=== PATIENT | female | born 1995 | race Caucasian/White ===

== ENCOUNTER 2017-01-06 20:23 | Emergency (ER) | payer OTHER ==
[2017-01-06 20:32] VITALS: BP 135/88; PULSE 84; RESP 18; TEMP 98.8
[2017-01-06] MEDS ORDERED: IBUPROFEN 600 MG STARTER PACK 4 TAB BTL PO STA (20:47)
[2017-01-06] MEDS ORDERED: MORPHINE SULFATE 4 MG/ML SYRINGE IM STA (20:47)
[2017-01-06] MEDS ORDERED: CYCLOBENZAPRINE 10MG STARTER 3 TAB BTL PO STA (20:47)
--- NOTE | 2017-01-06 20:52 | ED ---
General Adult HPI - General Chief complaint: Neck Pain/Injury Stated complaint: Neck Pain Time Seen by Provider: 01/06/17 20:36 Source: patient, RN notes reviewed Mode of arrival: ambulatory Limitations: no limitations - History of Present Illness Initial comments: Patient is a 21-year-old female who presents emergency room today with chief complaint of increased right-sided neck pain over the last 2 days. She states she woke up with pain to the right side. She states worse when she rotates her head to the right. States not as bad when she rotates to the left. She states she's been trying Tylenol flu relief the symptoms. Patient denies any other complaints or symptoms. Patient denies any recent fever, chills, shortness of breath, chest pain, back pain, abdominal pain, nausea or vomiting, numbness or tingling, dysuria or hematuria, constipation or diarrhea, headaches or visual changes, or any other complaints. - Related Data Home Medications Medication Instructions Recorded Confirmed [id number] 2 tab PO DAILY PRN 01/06/17 01/06/17 [Excedrin] Cetirizine HCl [Zyrtec] 10 mg PO DAILY PRN 01/06/17 01/06/17 diphenhydrAMINE HCL [Benadryl] 25 mg PO QAM 01/06/17 01/06/17 diphenhydrAMINE HCL [Benadryl] 50 mg PO HS 01/06/17 01/06/17 Previous Rx's Medication Instructions Recorded Cyclobenzaprine [Flexeril] 10 mg PO TID #20 tab 01/06/17 Ibuprofen [Motrin] 800 mg PO Q6HR #30 tab 01/06/17 Allergies Allergy/AdvReac Type Severity Reaction Status Date / Time No Known Allergies Allergy Verified 01/06/17 20:41 Review of Systems ROS Statement: Those systems with pertinent positive or pertinent negative responses have been documented in the HPI. ROS Other: All systems not noted in ROS Statement are negative. Past Medical History Past Medical History: No Reported History History of Any Multi-Drug Resistant Organisms: Unobtainable Past Surgical History: No Surgical Hx Reported Past Psychological History: No Psychological Hx Reported Smoking Status: Never smoker Past Alcohol Use History: None Reported Past Drug Use History: None Reported General Exam - General Exam Comments Initial Comments: General: The patient is awake and alert, in no distress, and does not appear acutely ill. Eye: Pupils are equal, round and reactive to light, extra-ocular movements are intact. No nystagmus. There is normal conjunctiva bilaterally. No signs of icterus. Ears, nose, mouth and throat: There are moist mucous membranes and no oral lesions. Neck: The neck is supple, there is no tenderness or JVD. Cardiovascular: There is a regular rate and rhythm. No murmur, rub or gallop is appreciated. Respiratory: Lungs are clear to auscultation, respirations are non-labored, breath sounds are equal. No wheezes, stridor, rales, or rhonchi. Musculoskeletal: Normal ROM. Patient does have tenderness over the sternocleidomastoid on the right. Patient pain reproduced when she rotates to the right. Strength 5/5. Sensation intact. Pulses equal bilaterally 2+. Neurological: A&O x 3. CN II-XII intact, There are no obvious motor or sensory deficits. Coordination appears grossly intact. Speech is normal. Skin: Skin is warm and dry and no rashes or lesions are noted. Psychiatric: Cooperative, appropriate mood & affect, normal judgment. Limitations: no limitations Course Vital Signs 01/06/17 20:30 Temperature 98.8 F Pulse Rate 84 Respiratory 18 Rate Blood Pressure 135/88 O2 Sat by Pulse 99 Oximetry Medical Decision Making - Medical Decision Making Patient given dose of morphine here in the emergency room if she does have a ride home advise anti-inflammatories and muscle laxer.. Muscle laxer mimicker drowsy. Disposition Clinical Impression: Torticollis Disposition: HOME SELF-CARE Condition: Good Instructions: Spasmodic Torticollis (ED) Additional Instructions: Please use medications as prescribed. Aware that they may make you drowsy. Please follow-up the family doctor over the next 2 days return to emergency room for any other concerns. Prescriptions: Cyclobenzaprine [Flexeril] 10 mg PO TID #20 tab Ibuprofen [Motrin] 800 mg PO Q6HR #30 tab Referrals: None,Stated [Primary Care Provider] - 1-2 days Sanket Lynn MD [REFERRING] - 1-2 days Shayne Gibson DO [STAFF PHYSICIAN] - 1-2 days Time of Disposition: 20:50
== END 2017-01-06 21:10 | disposition home or self-care (01) ==
LOC: EC 20:23
DX: M43.6 Torticollis (principal); Z79.899 Other long term (current) drug therapy
CPT/HCPCS: 99283; 96372; J2270

== ENCOUNTER 2017-04-24 23:06 | Emergency (ER) | payer OTHER ==
--- NOTE | 2017-04-24 23:40 | ED ---
General Adult HPI - General Chief complaint: Abdominal Pain Stated complaint: Flank Pain/Sinus Pain Time Seen by Provider: 04/24/17 23:28 Source: patient, RN notes reviewed Mode of arrival: ambulatory Limitations: no limitations - History of Present Illness Initial comments: The patient 21-year-old female who presents emergency room today with multiple complaints. Patient does admit that she believe she may have a kidney infection. She states she had some pain in the left flank area [address]. States came back tonight. Patient does admit that she also expressed pain on the right side as well. She denies any injury or trauma. Patient states feels similar to kidney infection that she's had in the past. She denies any dysuria. Denies any increased frequency. Patient also admits to a sinus infection and started yesterday. Does admit to increased drainage. Patient states feels congested. Doesn't pressure behind his sinuses. Denies any other complaints. Patient denies any recent fever, chills, shortness of breath, chest pain, abdominal pain, nausea or vomiting, numbness or tingling, dysuria or hematuria, constipation or diarrhea, headaches or visual changes, or any other complaints. - Related Data Home Medications Medication Instructions Recorded Confirmed Cetirizine HCl [Zyrtec] 10 mg PO DAILY PRN 01/06/17 04/24/17 diphenhydrAMINE HCL [Children's 1 dose PO ONCE PRN 04/24/17 04/24/17 Benadryl Allergy] Previous Rx's Medication Instructions Recorded Cyclobenzaprine [Flexeril] 10 mg PO TID #20 tab 04/25/17 Fluticasone Propionate [Flonase 1 - 2 spray EA NOSTRIL DAILY 5 04/25/17 Allergy Relief] Days ml Ibuprofen [Motrin] 600 mg PO Q6HR PRN #40 day 04/25/17 Allergies Allergy/AdvReac Type Severity Reaction Status Date / Time amoxicillin AdvReac Nausea & Verified 04/24/17 23:20 Vomiting Review of Systems ROS Statement: Those systems with pertinent positive or pertinent negative responses have been documented in the HPI. ROS Other: All systems not noted in ROS Statement are negative. Past Medical History Past Medical History: No Reported History History of Any Multi-Drug Resistant Organisms: Unobtainable Past Surgical History: No Surgical Hx Reported Past Psychological History: No Psychological Hx Reported Smoking Status: Never smoker Past Alcohol Use History: Occasional Past Drug Use History: Marijuana General Exam - General Exam Comments Initial Comments: General: The patient is awake and alert, in no distress, and does not appear acutely ill. Eye: Pupils are equal, round and reactive to light, extra-ocular movements are intact. No nystagmus. There is normal conjunctiva bilaterally. No signs of icterus. Ears, nose, mouth and throat: There are moist mucous membranes and no oral lesions. Tender over the frontal sinuses. Neck: The neck is supple, there is no tenderness or JVD. Cardiovascular: There is a regular rate and rhythm. No murmur, rub or gallop is appreciated. Respiratory: Lungs are clear to auscultation, respirations are non-labored, breath sounds are equal. No wheezes, stridor, rales, or rhonchi. Gastrointestinal: Soft, non-distended, non-tender abdomen without masses or organomegaly noted. There is no rebound or guarding present. No CVA tenderness. Bowel sounds are unremarkable. Musculoskeletal: Normal ROM, no tenderness. Strength 5/5. Sensation intact. Pulses equal bilaterally 2+. Neurological: A&O x 3. CN II-XII intact, There are no obvious motor or sensory deficits. Coordination appears grossly intact. Speech is normal. Skin: Skin is warm and dry and no rashes or lesions are noted. Psychiatric: Cooperative, appropriate mood & affect, normal judgment. Limitations: no limitations Course Vital Signs 04/24/17 23:08 Temperature 99.1 F Pulse Rate 113 H Respiratory 17 Rate Blood Pressure 113/91 O2 Sat by Pulse 98 Oximetry Medical Decision Making - Medical Decision Making Patient reexamined at this time shows no signs of stress currently sleeping in the stretcher. Patient does not the back pain is worse with certain movements. Also felt that it could be musculoskeletal. Patient urinalysis is been reviewed will be added. Patient will also be treated with Flonase for sinus infection. Advised continue [id number] medications. Advised anti- inflammatories will also be given a muscle relaxer for her back. Advised close follow-up return here to the emergency room symptoms increase or worsen. - Lab Data Lab Results 04/24/17 04/24/17 Range/Units 23:37 23:37 Urine Color Yellow Urine Appearance Clear (Clear) Urine pH 5.5 (5.0-8.0) Ur Specific [place] 1.028 (1.001-1.035) Urine Protein Trace H (Negative) Urine Glucose (UA) Negative (Negative) Urine Ketones Trace H (Negative) Urine Blood Negative (Negative) Urine Nitrite Negative (Negative) Urine Bilirubin Negative (Negative) Urine Urobilinogen <2.0 (<2.0) mg/dL Ur Leukocyte Esterase Trace H (Negative) Urine RBC 1 (0-5) /hpf Urine WBC 4 (0-5) /hpf Ur Squamous Epith Cells 1 (0-4) /hpf Urine Bacteria Rare H (None) /hpf Urine Mucus Rare H (None) /hpf Urine HCG, Qual Not Detected (Not Detectd) Disposition Clinical Impression: Acute low back pain, Sinusitis, acute Disposition: HOME SELF-CARE Condition: Good Instructions: Sinusitis (ED), Acute Low Back Pain (ED) Additional Instructions: Please use medication as discussed. Please be aware the muscle relaxant may make you drowsy. Please follow-up with family doctor in the next 2 days of symptoms have not improved. Please return to emergency room if the symptoms increase or worsen or for any other concerns. Prescriptions: Cyclobenzaprine [Flexeril] 10 mg PO TID #20 tab Fluticasone Propionate [Flonase Allergy Relief] 1 - 2 spray EA NOSTRIL DAILY 5 Days ml Ibuprofen [Motrin] 600 mg PO Q6HR PRN #40 day PRN Reason: Pain Referrals: None,Stated [Primary Care Provider] - 1-2 days Davian Lofton MD [STAFF PHYSICIAN] - 1-2 days Time of Disposition: 00:03
[2017-04-24 23:53] LABS: Appearance,Urine Clear (Clear); Bacteria,Urine Rare /hpf; Bilirubin,Urine Negative (Negative); Blood,Urine Negative (Negative); Color,Urine Yellow; Glucose,Urine (UA) Negative (Negative); Ketones,Urine Trace (Negative); Leukocyte Esterase,Urine Trace (Negative); Mucus,Urine Rare /hpf; Nitrite,Urine Negative (Negative); PH, Urine 5.5 (5.0-8.0); Protein,Urine Trace (Negative); RBC,Urine 1 /hpf (0-5); Specific Gravity,Urine 1.028 (1.001-1.035); Squamous Epithelial Cell,Urine 1 /hpf (0-4); Urobilinogen,Urine <2.0 mg/dL (<2.0); WBC,Urine 4 /hpf (0-5)
[2017-04-25] MEDS ORDERED: ACETAMINOPHEN TAB 500 MG TAB PO STA (00:20)
[2017-04-25 00:22] VITALS: BP 130/61; PULSE 97; RESP 18; TEMP 101.4
== END 2017-04-25 00:27 | disposition home or self-care (01) ==
LOC: EC 23:06
DX: J01.90 Acute sinusitis, unspecified (principal); M54.5 Low back pain; Z88.0 Allergy status to penicillin
CPT/HCPCS: 81001; 81025; 87077; 87086; 87186; 99284

== ENCOUNTER 2017-09-19 19:33 | Emergency (ER) | payer OTHER ==
[2017-09-19] MEDS ORDERED: ACETAMINOPHEN TAB 325 MG TAB PO STA (19:59)
[2017-09-19] MEDS ORDERED: SODIUM CHLORIDE 0.9% 1,000 ML IV ONE (19:59)
--- NOTE | 2017-09-19 20:21 | ED ---
Abdominal Pain HPI - General Chief Complaint: Abdominal Pain Stated Complaint: Back Pain Time Seen by Provider: 09/19/17 19:45 Source: patient Mode of arrival: ambulatory Limitations: no limitations - History of Present Illness Initial Comments: 22-year-old female patient presented to the emergency department today for evaluation of lower abdominal cramping and lower back pain. Patient states his been going on since yesterday. Patient reports that she is 10 weeks . She is a . Patient denies any abnormal vaginal bleeding or discharge. Denies any hematuria, dysuria, urinary frequency, urinary urgency. Patient states that today she also had a hot flash felt very warm. She denies any sweats. Denies any rash. States that she did have an ultrasound at 6 weeks confirming intrauterine . She has not had her first OB appointment yet. Patient denies any recent fever, chills, shortness breath, chest pain, nausea, vomiting, diarrhea, constipation, numbness, tingling, dizziness, weakness, headache, visual changes, or any other complaints. - Related Data Home Medications Medication Instructions Recorded Confirmed Cetirizine HCl [Zyrtec] 10 mg PO DAILY PRN 01/06/17 09/19/17 Pnv No.95/Ferrous Fum/Folic AC 1 tab PO DAILY 09/19/17 09/19/17 [ Multivitamin Tablet] diphenhydrAMINE HCL [Benadryl] 25 mg PO HS 09/19/17 09/19/17 Allergies Allergy/AdvReac Type Severity Reaction Status Date / Time amoxicillin AdvReac Nausea & Verified 09/19/17 20:11 Vomiting Review of Systems ROS Statement: Those systems with pertinent positive or pertinent negative responses have been documented in the HPI. ROS Other: All systems not noted in ROS Statement are negative. Past Medical History Past Medical History: No Reported History History of Any Multi-Drug Resistant Organisms: None Reported Past Surgical History: No Surgical Hx Reported Past Psychological History: Anxiety Smoking Status: Never smoker Past Alcohol Use History: Occasional Past Drug Use History: None Reported General Exam Limitations: no limitations General appearance: alert, in no apparent distress, other (Physical well- developed, well-nourished adult female patient in no acute distress. Vital signs upon presentation are temperature 98.1F, pulse 80, respirations 18, blood pressure 107/70, pulse ox 98% on room air.) Eye exam: Present: normal appearance, PERRL, EOMI. Absent: scleral icterus, conjunctival injection, periorbital swelling ENT exam: Present: normal exam, normal oropharynx, mucous membranes moist Respiratory exam: Present: normal lung sounds bilaterally. Absent: respiratory distress, wheezes, rales, rhonchi, stridor Cardiovascular Exam: Present: regular rate, normal rhythm, normal heart sounds. Absent: systolic murmur, diastolic murmur, rubs, gallop, clicks GI/Abdominal exam: Present: soft, normal bowel sounds. Absent: distended, tenderness, guarding, rebound, rigid Back exam: Present: normal inspection. Absent: CVA tenderness (R), CVA tenderness (L) Neurological exam: Present: alert, oriented X3, CN II-XII intact Psychiatric exam: Present: normal affect, normal mood Skin exam: Present: warm, dry, intact, normal color. Absent: rash Course Vital Signs 09/19/17 09/19/17 09/19/17 19:36 21:18 22:54 Temperature 98.1 F 97.5 F L Pulse Rate 80 56 L 75 Respiratory 18 17 18 Rate Blood Pressure 107/70 113/65 115/84 O2 Sat by Pulse 98 100 100 Oximetry Medical Decision Making - Medical Decision Making 22-year-old female patient who is approximately 9 weeks presented to the emergency department today with complaints of lower abdominal cramping and low back pain. Patient denied any vaginal bleeding or discharge. Physical examination is unremarkable. Abdomen is soft and nontender. Urinalysis was negative for any evidence of infection. Labs are unremarkable. HCG level is within range for the stage of her . Ultrasound was performed and showed normal viable intrauterine measuring 9 weeks 1 day. Heart rate was within normal range. Did discuss findings and results with the patient. She is instructed follow-up with CHIEF WHEELAGE CLERK as soon as possible. Return parameters discussed in detail. She verbalizes understanding and agrees with this plan. - Lab Data Result diagrams: 09/19/17 19:10 09/19/17 19:10 Lab Results 09/19/17 09/19/17 09/19/17 Range/Units 19:10 19:10 19:10 WBC 8.5 (3.8-10.6) k/uL RBC 4.55 (3.80-5.40) m/uL Hgb 12.5 (11.4-16.0) gm/dL Hct 36.7 (34.0-46.0) % MCV 80.5 (80.0-100.0) fL MCH 27.4 (25.0-35.0) pg MCHC 34.1 (31.0-37.0) g/dL RDW 14.4 (11.5-15.5) % Plt Count 250 (150-450) k/uL Neutrophils % 64 % Lymphocytes % 24 % Monocytes % 7 % Eosinophils % 3 % Basophils % 0 % Neutrophils # 5.5 (1.3-7.7) k/uL Lymphocytes # 2.1 (1.0-4.8) k/uL Monocytes # 0.6 (0-1.0) k/uL Eosinophils # 0.2 (0-0.7) k/uL Basophils # 0.0 (0-0.2) k/uL Sodium 138 (137-145) mmol/L Potassium 3.8 (3.5-5.1) mmol/L Chloride 106 (98-107) mmol/L Carbon Dioxide 22 (22-30) mmol/L Anion Gap 10 mmol/L BUN 12 (7-17) mg/dL Creatinine 0.52 (0.52-1.04) mg/dL Est GFR (CKD-EPI)AfAm >90 (>60 ml/min/1.73 sqM) Est GFR (CKD-EPI)NonAf >90 (>60 ml/min/1.73 sqM) Glucose 89 (74-99) mg/dL Calcium 8.7 (8.4-10.2) mg/dL Total Bilirubin 0.2 (0.2-1.3) mg/dL AST 20 (14-36) U/L ALT 40 (9-52) U/L Alkaline Phosphatase 47 (38-126) U/L Total Protein 5.8 L (6.3-8.2) g/dL Albumin 3.3 L (3.5-5.0) g/dL Amylase 41 (30-110) U/L Lipase 50 (23-300) U/L HCG, Quant 75977.6 mIU/mL Urine Color Yellow Urine Appearance Clear (Clear) Urine pH 6.5 (5.0-8.0) Ur Specific [place] 1.026 (1.001-1.035) Urine Protein Negative (Negative) Urine Glucose (UA) 1+ H (Negative) Urine Ketones Negative (Negative) Urine Blood Negative (Negative) Urine Nitrite Negative (Negative) Urine Bilirubin Negative (Negative) Urine Urobilinogen 2.0 (<2.0) mg/dL Ur Leukocyte Esterase Negative (Negative) - Radiology Data Radiology results: report reviewed ultrasound was obtained. Report was reviewed in its entirety. Impression by Dr. Rothman shows ultrasound gestational age is 9 weeks in 1 day. No, getting process is seen. Viable intrauterine . Heart rate 165 bpm. Disposition Clinical Impression: Abdominal pain during Disposition: HOME SELF-CARE Condition: Good Instructions: Abdominal Pain in (ED) Additional Instructions: Increase fluids. Follow-up with your CHIEF WHEELAGE CLERK as soon as possible. Return here immediately for any new, worsening, or concerning symptoms. Is patient prescribed a controlled substance at d/c from ED?: No Referrals: Ania Babcock MD [Primary Care Provider] - 1-2 days Time of Disposition: 22:42
[2017-09-19 20:25] LABS: Basophils % (A) 0 %; Eosinophils # (A) 0.2 k/uL (0-0.7); Eosinophils % (A) 3 %; HCT 36.7 % (34.0-46.0); HGB 12.5 gm/dL (11.4-16.0); Lymphocytes # (A) 2.1 k/uL (1.0-4.8); Lymphocytes % (A) 24 %; MCH 27.4 pg (25.0-35.0); MCHC 34.1 g/dL (31.0-37.0); MCV 80.5 fL (80.0-100.0); Mean Platelet Volume 7.7; Monocytes # (A) 0.6 k/uL (0-1.0); Monocytes % (A) 7 %; Neutrophils # (A) 5.5 k/uL (1.3-7.7); Neutrophils % (A) 64 %; Platelet Count 250 k/uL (150-450); RBC 4.55 m/uL (3.80-5.40); RDW 14.4 % (11.5-15.5); WBC 8.5 k/uL (3.8-10.6)
[2017-09-19 20:28] LABS: Appearance,Urine Clear (Clear); Bilirubin,Urine Negative (Negative); Blood,Urine Negative (Negative); Color,Urine Yellow; Glucose,Urine (UA) 1+ (Negative); Ketones,Urine Negative (Negative); Leukocyte Esterase,Urine Negative (Negative); Nitrite,Urine Negative (Negative); PH, Urine 6.5 (5.0-8.0); Protein,Urine Negative (Negative); Specific Gravity,Urine 1.026 (1.001-1.035)
[2017-09-19 20:43] LABS: ALT 40 U/L (9-52); AST 20 U/L (14-36); Albumin 3.3 g/dL (3.5-5.0); Alkaline Phosphatase 47 U/L (38-126); Amylase 41 U/L (30-110); Anion Gap 10 mmol/L; Blood Urea Nitrogen 12 mg/dL (7-17); Calcium 8.7 mg/dL (8.4-10.2); Carbon Dioxide 22 mmol/L (22-30); Chloride 106 mmol/L (98-107); Glucose 89 mg/dL (74-99); Lipase 50 U/L (23-300); Potassium 3.8 mmol/L (3.5-5.1); Sodium 138 mmol/L (137-145); Total Bilirubin 0.2 mg/dL (0.2-1.3); Total Protein 5.8 g/dL (6.3-8.2)
--- NOTE | 2017-09-19 21:09 | US ---
EXAMINATION TYPE: Transabdominal DATE OF EXAM: 07/16/17 COMPARISON: NONE CLINICAL HISTORY: Pain. Back pain EXAM PERFORMED: Transabdominal (TA) EXAM MEASUREMENTS: GESTATIONAL AGE / DATING Physician Established: (9 weeks/3 days) EDC: 04/21/2018 Dates by LMP: (9 weeks/3 days) EDC: 04/21/2018 Dates by First Scan: No previous this is first scan Dates by Current Scan for: (9 weeks/1 days) EDC: 04/23/2018 MATERNAL ANATOMY Uterus: 10.1 x 6.5 x 8.1 cm Right Ovary: 4.0 x 2.2 x 1.7 cm Left Ovary: 3.7 x 3.1 x 2.5 cm Post CDS / Adnexa: wnl Presence of free fluid: no Presence of corpus luteal cyst: no Presence of subchorionic bleed: no GESTATION / SURVEY CRL: 2.5 cm (9 weeks/1 days) Yolk Sac (normal less than 6mm): 4 mm Heart Rate: 165 bpm Rhythm: Normal IUP: Viable IUP Beta HcG (if available): Not available at this time Viable IUP 9w1d STEFANY 04/23/2018 HR 165 BPM IMPRESSION: The ultrasound gestational age is 9 weeks and 1 day. No complicating process seen.
[2017-09-19 22:00] LABS: HCG,Quantitative Serum 71203.6 mIU/mL
[2017-09-19 22:57] VITALS: BP 115/84; PULSE 75; RESP 18; TEMP 97.5
== END 2017-09-19 22:53 | disposition home or self-care (01) ==
LOC: EC 19:33
DX: O99.89 Other specified diseases and conditions complicating pregnancy, childbirth and the puerperium (principal); R10.30 Lower abdominal pain, unspecified; M54.5 Low back pain; R20.8 Other disturbances of skin sensation; Z79.899 Other long term (current) drug therapy; Z88.0 Allergy status to penicillin; Z3A.09 9 weeks gestation of pregnancy
CPT/HCPCS: 36415; 76801; 80053; 81003; 82150; 83690; 84702; 85025; 96360; 96361; 99284

== ENCOUNTER 2017-09-25 05:39 | Emergency (ER) | payer OTHER ==
[2017-09-25 05:47] VITALS: TEMP 97.4
[2017-09-25 06:40] LABS: Appearance,Urine Cloudy (Clear); Bacteria,Urine Rare /hpf; Bilirubin,Urine Negative (Negative); Blood,Urine Negative (Negative); Color,Urine Yellow; Glucose,Urine (UA) Negative (Negative); Hyaline Casts,Urine 1 /lpf (0-2); Ketones,Urine Negative (Negative); Leukocyte Esterase,Urine Negative (Negative); Mucus,Urine Rare /hpf; Nitrite,Urine Negative (Negative); Protein,Urine Negative (Negative); RBC,Urine <1 /hpf (0-5); Specific Gravity,Urine 1.022 (1.001-1.035); Squamous Epithelial Cell,Urine 10 /hpf (0-4); Urobilinogen,Urine <2.0 mg/dL (<2.0); WBC,Urine 4 /hpf (0-5)
[2017-09-25 07:00] LABS: ALT 38 U/L (9-52); AST 18 U/L (14-36); Albumin 3.3 g/dL (3.5-5.0); Alkaline Phosphatase 57 U/L (38-126); Anion Gap 10 mmol/L; Blood Urea Nitrogen 14 mg/dL (7-17); Calcium 8.7 mg/dL (8.4-10.2); Carbon Dioxide 24 mmol/L (22-30); Chloride 106 mmol/L (98-107); Glucose 92 mg/dL (74-99); Potassium 4.5 mmol/L (3.5-5.1); Sodium 140 mmol/L (137-145); Total Bilirubin 0.2 mg/dL (0.2-1.3); Total Protein 5.8 g/dL (6.3-8.2)
[2017-09-25 07:10] LABS: Basophils % (A) 0 %; Eosinophils # (A) 0.2 k/uL (0-0.7); Eosinophils % (A) 3 %; HCT 37.1 % (34.0-46.0); HGB 12.4 gm/dL (11.4-16.0); Lymphocytes % (A) 31 %; MCH 27.2 pg (25.0-35.0); MCHC 33.5 g/dL (31.0-37.0); MCV 81.2 fL (80.0-100.0); Mean Platelet Volume 7.2; Monocytes # (A) 0.3 k/uL (0-1.0); Monocytes % (A) 5 %; Neutrophils # (A) 3.8 k/uL (1.3-7.7); Neutrophils % (A) 59 %; Platelet Count 235 k/uL (150-450); RBC 4.57 m/uL (3.80-5.40); RDW 14.2 % (11.5-15.5); WBC 6.4 k/uL (3.8-10.6)
--- NOTE | 2017-09-25 07:13 | ED ---
Abdominal Pain HPI - General Chief Complaint: Abdominal Pain Stated Complaint: abd pain 10wks preg Time Seen by Provider: 09/25/17 07:02 Source: patient Mode of arrival: ambulatory Limitations: no limitations - History of Present Illness Initial Comments: Patient complains of abdominal discomfort. She has no vaginal bleeding or discharge. She is approximately 10 weeks . She denies any chest pain or shortness of breath. She has no back pain. She has no lightheadedness or dizziness. She denies any injuries. She has had no lightheadedness or dizziness. She has no pain with eating. She is tolerating oral intake. She has no nausea or vomiting. Nothing makes the abdominal discomfort better or worse. - Related Data Home Medications Medication Instructions Recorded Confirmed Cetirizine HCl [Zyrtec] 10 mg PO DAILY PRN 01/06/17 09/25/17 Pnv No.95/Ferrous Fum/Folic AC 1 tab PO DAILY 09/19/17 09/25/17 [ Multivitamin Tablet] diphenhydrAMINE HCL [Benadryl] 25 mg PO HS 09/19/17 09/25/17 Allergies Allergy/AdvReac Type Severity Reaction Status Date / Time amoxicillin AdvReac Nausea & Verified 09/25/17 07:43 Vomiting Review of Systems ROS Statement: Those systems with pertinent positive or pertinent negative responses have been documented in the HPI. ROS Other: All systems not noted in ROS Statement are negative. Past Medical History Past Medical History: No Reported History History of Any Multi-Drug Resistant Organisms: None Reported Past Surgical History: No Surgical Hx Reported Past Psychological History: Anxiety Smoking Status: Never smoker Past Alcohol Use History: Occasional Past Drug Use History: None Reported General Exam Limitations: no limitations General appearance: alert, in no apparent distress Head exam: Present: atraumatic, normocephalic, normal inspection Eye exam: Present: normal appearance, PERRL, EOMI. Absent: scleral icterus, conjunctival injection, periorbital swelling ENT exam: Present: normal exam, mucous membranes moist Neck exam: Present: normal inspection. Absent: tenderness, meningismus, lymphadenopathy Respiratory exam: Present: normal lung sounds bilaterally. Absent: respiratory distress, wheezes, rales, rhonchi, stridor Cardiovascular Exam: Present: regular rate, normal rhythm, normal heart sounds. Absent: systolic murmur, diastolic murmur, rubs, gallop, clicks GI/Abdominal exam: Present: soft, normal bowel sounds. Absent: distended, tenderness, guarding, rebound, rigid Extremities exam: Present: normal inspection, full ROM, normal capillary refill. Absent: tenderness, pedal edema, joint swelling, calf tenderness Back exam: Present: normal inspection Neurological exam: Present: alert, oriented X3, CN II-XII intact Psychiatric exam: Present: normal affect, normal mood Skin exam: Present: warm, dry, intact, normal color. Absent: rash Course Vital Signs 09/25/17 09/25/17 05:44 06:38 Temperature 97.4 F L Pulse Rate 79 73 Respiratory 18 18 Rate Blood Pressure 141/88 106/54 O2 Sat by Pulse 98 97 Oximetry Medical Decision Making - Medical Decision Making Patient complains of abdominal pain. Imaging reveals a subchorionic bleed, but the is normal with normal heart rate. There is no evidence of any other acute emergency condition. She is resting comfortable he. She has no evidence of UTI. I will give the patient a work note, and I advised her to follow-up with OB within 24 hours. I instructed her to return to the emergency department if symptoms worsen or if she develops any other problems or complaints. - Lab Data Result diagrams: 09/25/17 06:32 09/25/17 06:32 Lab Results 09/25/17 09/25/17 09/25/17 Range/Units 06:23 06:32 06:32 WBC 6.4 (3.8-10.6) k/uL RBC 4.57 (3.80-5.40) m/uL Hgb 12.4 (11.4-16.0) gm/dL Hct 37.1 (34.0-46.0) % MCV 81.2 (80.0-100.0) fL MCH 27.2 (25.0-35.0) pg MCHC 33.5 (31.0-37.0) g/dL RDW 14.2 (11.5-15.5) % Plt Count 235 (150-450) k/uL Neutrophils % 59 % Lymphocytes % 31 % Monocytes % 5 % Eosinophils % 3 % Basophils % 0 % Neutrophils # 3.8 (1.3-7.7) k/uL Lymphocytes # 2.0 (1.0-4.8) k/uL Monocytes # 0.3 (0-1.0) k/uL Eosinophils # 0.2 (0-0.7) k/uL Basophils # 0.0 (0-0.2) k/uL Sodium 140 (137-145) mmol/L Potassium 4.5 (3.5-5.1) mmol/L Chloride 106 (98-107) mmol/L Carbon Dioxide 24 (22-30) mmol/L Anion Gap 10 mmol/L BUN 14 (7-17) mg/dL Creatinine 0.65 (0.52-1.04) mg/dL Est GFR (CKD-EPI)AfAm >90 (>60 ml/min/1.73 sqM) Est GFR (CKD-EPI)NonAf >90 (>60 ml/min/1.73 sqM) Glucose 92 (74-99) mg/dL Calcium 8.7 (8.4-10.2) mg/dL Total Bilirubin 0.2 (0.2-1.3) mg/dL AST 18 (14-36) U/L ALT 38 (9-52) U/L Alkaline Phosphatase 57 (38-126) U/L Total Protein 5.8 L (6.3-8.2) g/dL Albumin 3.3 L (3.5-5.0) g/dL HCG, Quant 74573.3 mIU/mL Urine Color Yellow Urine Appearance Cloudy H (Clear) Urine pH 6.0 (5.0-8.0) Ur Specific [place] 1.022 (1.001-1.035) Urine Protein Negative (Negative) Urine Glucose (UA) Negative (Negative) Urine Ketones Negative (Negative) Urine Blood Negative (Negative) Urine Nitrite Negative (Negative) Urine Bilirubin Negative (Negative) Urine Urobilinogen <2.0 (<2.0) mg/dL Ur Leukocyte Esterase Negative (Negative) Urine RBC <1 (0-5) /hpf Urine WBC 4 (0-5) /hpf Ur Squamous Epith Cells 10 H (0-4) /hpf Urine Bacteria Rare H (None) /hpf Hyaline Casts 1 (0-2) /lpf Urine Mucus Rare H (None) /hpf Disposition Clinical Impression: Threatened miscarriage in early Disposition: HOME SELF-CARE Condition: Good Instructions: Threatened Miscarriage (ED) Is patient prescribed a controlled substance at d/c from ED?: No Referrals: Ania Babcock MD [Primary Care Provider] - 1-2 days
[2017-09-25 08:16] LABS: HCG,Quantitative Serum 73570.3 mIU/mL
--- NOTE | 2017-09-25 09:00 | US ---
EXAMINATION TYPE: US kidneys/renal and bladder DATE OF EXAM: 09/25/2017 COMPARISON: NONE CLINICAL HISTORY: Abdominal pain. EXAM MEASUREMENTS: Right Kidney: 11.5 x 5.2 x 6.0 cm Left Kidney: 12.5 x 4.4 x 5.6 cm Right Kidney: No hydronephrosis or masses seen Left Kidney: No hydronephrosis or masses seen; hyperechoic contour deformity anterior aspect Bladder: slightly distended There is no evidence for hydronephrosis at this point in time. No nephrolithiasis is seen. No gloria s are identified. The urinary bladder is anechoic. Bilateral ureteral jets are seen. IMPRESSION: 1. No hydronephrosis or nephrolithiasis. 2. Cortical retraction and linear scarring within the left kidney from prior injury.
--- NOTE | 2017-09-25 09:06 | US ---
EXAMINATION TYPE: Transabdominal DATE OF EXAM: 07/16/17 COMPARISON: 09/19/2017 CLINICAL HISTORY: Pain. EXAM PERFORMED: Transvaginal (TV) and Transabdominal (TA) EXAM MEASUREMENTS: GESTATIONAL AGE / DATING Physician Established: (10weeks/6 days) EDC: 04/17/2018 Dates by LMP: unknown Dates by First Scan: (10 weeks/0 days) EDC: 04/23/2018 Dates by Current Scan for: (10 weeks/5 days) EDC: 04/18/2018 MATERNAL ANATOMY Uterus: 10.6 x 6.8 x 8.9 cm Right Ovary: 3.2 x 1.7 x 3.4 cm Left Ovary: not identified Post CDS / Adnexa: wnl Presence of free fluid: no Presence of corpus luteal cyst: no Presence of subchorionic bleed: yes GESTATION / SURVEY CRL: 3.9 (10 weeks/5 days) MSD: ( weeks/ days) Heart Rate: 173 bpm Rhythm: IUP: Viable IUP Life single IUP of 10 we3ks 5 day with EDC of 04/18/2018 Second structure seen in left uterus; well defined, hyperechoic borders, with low level echoes fillin g structure. Unable to identify left ovary, adnexa appears wnl. IMPRESSION: In addition to a single live intrauterine there is an adjacent hypoechoic region with inter nal echoes measuring up to 4.5 cm in length encompassing approximately 50% of the gestational sac manuelito meter raising suspicion for a subchorionic hemorrhage. Given its size consideration could be given to STRUCTURAL DRAFTSMAN consultation or follow-up.
[2017-09-25 09:28] VITALS: BP 110/78; PULSE 70; RESP 16
== END 2017-09-25 09:25 | disposition home or self-care (01) ==
LOC: EC 05:39
DX: O20.0 Threatened abortion (principal); Z79.899 Other long term (current) drug therapy; Z88.0 Allergy status to penicillin; Z3A.10 10 weeks gestation of pregnancy
CPT/HCPCS: 36415; 76770; 76801; 76817; 80053; 81001; 84702; 85025; 99284

== ENCOUNTER → 2017-10-08 | Outpatient (CLI) | payer OTHER ==
--- NOTE | 2017-10-08 12:20 | US ---
EXAMINATION TYPE: Transabdominal DATE OF EXAM: 07/16/17 COMPARISON: NONE CLINICAL HISTORY: Z36 Encounter for screening of mother. known subchorionic bleed, no cramp ing or bleeding at this time EXAM PERFORMED: TA EXAM MEASUREMENTS: GESTATIONAL AGE / DATING Physician Established: (12 weeks/5 days) EDC: 04/17/2018 Dates by LMP: LMP unknown Dates by First Scan: (11 weeks/6 days) EDC: 04/23/2018 Dates by Current Scan for: (12 weeks/2 days) EDC: 04/20/2018 MATERNAL ANATOMY Uterus: 13.6 x 10.4 x 7.2cm Right Ovary: 3.3 x 3.1 x 1.7cm Left Ovary: 2.1 x 1.8 x 1.7cm Post CDS / Adnexa: wnl Presence of free fluid: no Presence of corpus luteal cyst: no Presence of subchorionic bleed: yes = 5.7cm, previous 4.5cm GESTATION / SURVEY CRL: 5.9cm (12 weeks/2 days) MSD: wnl Yolk Sac (normal less than 6mm): not seen Heart Rate: 169 bpm Rhythm: Normal IUP: Viable IUP Nuchal Translucency 10-14wks (normal less than 3mm): 0.2cm Date of LMP: unknown Beta HcG (if available): not available IMPRESSION: Single viable intrauterine .
== END | disposition home or self-care (01) ==
LOC: RADUSWWP 10:45
PROVIDERS: ATTEND Obstetrics & Gynecology
DX: Z36.9 Encounter for antenatal screening, unspecified (principal); Z88.0 Allergy status to penicillin
CPT/HCPCS: 76801; 76813

== ENCOUNTER → 2017-10-22 | Outpatient (CLI) | payer OTHER ==
--- NOTE | 2017-10-22 14:28 | US ---
EXAMINATION TYPE: US OB >= 14 wk fetus DATE OF EXAM: 10/22/2017 COMPARISON: Prior ultrasound October 08, 2017 CLINICAL HISTORY: R68.89 Abnormal clinical finding, assess known subchorionic bleed. no bleeding at t his time TECHNIQUE: OBTA GESTATIONAL AGE / DATING Physician Established: (14 weeks/5 days) EDC: 04/17/2018 Dates by LMP: (14 weeks/1 days) EDC: 04/21/2017 Dates by First Scan: (13 weeks/6 days) EDC: 04/23/2018 Dates by Current Scan: (15 weeks/3 days) EDC: 04/12/2018 SURVEY IUP: Single PLACENTA: Anterior PREVIA: Low Lying ESTRELLA: 10.7 cm Normal CERVICAL LENGTH (transabdominal: norm > 3.0cm): 3.0 cm BIOMETRY PRESENTATION: Variable LIE: Transverse with head maternal R BPD: 0.5 cm 15 weeks / 2 days HC: 0.2 cm 15 weeks / 2 days AC: 0.3 cm 15 weeks / 2 days FL: 0.9 cm 15 weeks / 5 days ESTIMATED WEIGHT IN GRAMS: 119 grams ESTIMATED WEIGHT IN LBS/OZ: 0 lbs. 4 oz. WEIGHT PERCENTAGE BASED ON ESTABLISHED DATES: 76% HC/AC: 1.3 Normal FL/AC: 22 Normal HEART RATE: 161 bpm RHYTHM: Normal Single live intrauterine gestation is redemonstrated. No cervical funneling is evident. A variable pr esentation to fetus is seen during real-time scanning. Slightly low-lying placenta without previa. Am niotic fluid index is within normal limits. biometry measurements are concordant felt within no rmal limits. No suspicious subchorionic fluid collection is seen on current study. IMPRESSION: As above, interval resolution of prior visualized moderate size subchorionic hemorrhage.
== END | disposition home or self-care (01) ==
LOC: RADUSWWP 13:10
PROVIDERS: ATTEND Obstetrics & Gynecology
DX: O20.9 Hemorrhage in early pregnancy, unspecified (principal); Z3A.15 15 weeks gestation of pregnancy
CPT/HCPCS: 76805

== ENCOUNTER 2017-11-20 06:46 | Outpatient (CLI) | payer OTHER ==
[2017-11-20 07:00] VITALS: BP 118/61; PULSE 86; RESP 16; TEMP 98.7
[2017-11-20 07:51] LABS: Appearance,Urine Cloudy (Clear); Bacteria,Urine Rare /hpf; Bilirubin,Urine Negative (Negative); Blood,Urine Negative (Negative); Color,Urine Yellow; Glucose,Urine (UA) Negative (Negative); Ketones,Urine Negative (Negative); Leukocyte Esterase,Urine Trace (Negative); Mucus,Urine Occasional /hpf; Nitrite,Urine Negative (Negative); PH, Urine 6.5 (5.0-8.0); Protein,Urine Trace (Negative); Specific Gravity,Urine 1.022 (1.001-1.035); Squamous Epithelial Cell,Urine 23 /hpf (0-4); Urobilinogen,Urine <2.0 mg/dL (<2.0); WBC,Urine 4 /hpf (0-5)
--- NOTE | 2017-11-20 08:11 | US ---
EXAMINATION TYPE: US OB >= 14 wk fetus DATE OF EXAM: 11/20/2017 COMPARISON: 10/22/2017 CLINICAL HISTORY: Complete OB arm tingling TECHNIQUE: Transabdominal (TA) GESTATIONAL AGE / DATING Physician Established: (19 weeks/4 days) (based on 10/22/2017 dating scan) EDC: 04/12/2018 Dates by Current Scan: (18 weeks/3 days) EDC: 04/20/2018 SURVEY IUP: Single PLACENTA: Anterior PREVIA: No Previa ESTRELLA: 14.0 cm Normal CERVICAL LENGTH (transabdominal: norm > 3.0cm): 3.9 cm BIOMETRY PRESENTATION: Breech LIE: Longitudinal BPD: 4.1 cm 18 weeks / 4 days HC: 15.6 cm 18 weeks / 3 days AC: 13.7 cm 19 weeks / 1 days FL: 2.7 cm 18 weeks / 1 days ESTIMATED WEIGHT IN GRAMS: 250.1 grams ESTIMATED WEIGHT IN LBS/OZ: 0 lbs. 9 oz. WEIGHT PERCENTAGE BASED ON ESTABLISHED DATES: 7.9% (vs 76% on 10/22/2017) HC/AC: 1.1 Normal FL/AC: 19.6 HEART RATE: 157 bpm RHYTHM: Normal Single live IUP measuring 18 weeks 3 days IMPRESSION: 1. Single live intrauterine with established gestational age of 19 weeks 4 days based on th e patient's last ultrasound of 10/22/2017. 2. Based on current biometry (18 weeks 3 days), there has been 1 week 1 day less growth than ex pected from then. 3. Accordingly, EFW percentile has moved from the 76% at that time now to 8%. Appropriate close follo w-up recommended. HC/AC remains normal.
--- NOTE | 2017-12-10 08:06 | P.MSEPDOC ---
Presenting Problems - Arrival Data Date of Arrival on Unit: 11/20/17 Time of Arrival on Unit: 06:46 Mode of Transport: Portable - Complaint OB-Reason for Admission/Chief Complaint: Vaginal Bleeding, Other Comment: pt c/o pink bleeding with wiping 2 days ago that continues this morning. also c/o right arm pain and itching. Medical History - Information : 1 Para: 0 Term: 0 : 0 Abortions: Spontaneous or Elective: 0 Number of Living Children: 0 - Gestational Age Gestational Age by STEFANY (wks/days): 19 Weeks and 4 Days Review of Systems - Review of Systems Constitutional: No problems Breast: No problems ENT: No problems Cardiovascular: No problems Respiratory: No problems Gastrointestinal: No problems Genitourinary: No problems Musculoskeletal: No problems Neurological: No problems Skin: No problems Vital Signs - Temperature Temperature: 98.7 F Temperature Source: Oral - Pulse Right Sitting Brachial Pulse Rate: 86 Pulse Assessment Method: Automatic Cuff - Respirations Oxygen Delivery Method: Room Air O2 Sat by Pulse Oximetry: 98 - Blood Pressure Right Arm Sitting Blood Pressure: 118/61 Blood Pressure Mean: 80 Blood Pressure Source: Automatic Cuff Medical Screen Scoring (Pre) - Cervical Exam Dilation: Exam Deferred Effacement: Exam Deferred Membranes: Intact - Uterine Contractions Frequency: N/A Duration: N/A Intensity: N/A - Maternal Vital Signs Maternal Temperature: N/A Maternal Blood Pressure: N/A Signs of Preeclampsia: N/A Maternal Respirations: N/A - Pain Assessment Pain Location and Character: Right, Arm Pain Scale Used: Numeric (1 - 10) Pain Intensity: 7 Pain Management Goal: 5 Pain Description: *Acute, Aching Pain Radiation Location: n/a Pain Frequency: Frequent Pain Duration: 4 Pain Behavior: Vocalization Pain Aggravating Factors: None - Assessment Baseline FHR: 153 Heart Rate - NICHD Category: Category I (Normal) = 0 Position: N/A Station: N/A - Total Score Total Score (Pre): 0 - Level of Risk Level of Risk: Low (0-5) Physician Notification (Pre) - Physician Notified Physician Notified Date: 11/20/17 Physician Notified Time: 06:59 Physician/Practitioner Notifed:: lalito Spoke With: lalito New Order Received: Yes Medical Screen Scoring (Post) - Cervical Exam Dilation: Exam Deferred - Uterine Contractions Frequency: N/A - Maternal Vital Signs Maternal Temperature: N/A Signs of Preeclampsia: N/A Maternal Respirations: N/A - Pain Assessment Pain Location and Character: Left, Lower, Back Pain Scale Used: Numeric (1 - 10) Pain Intensity: 6 Pain Management Goal: 0 Pain Description: Aching Pain Frequency: Intermittent Pain Duration Units: Minutes Pain Behavior: Vocalization Non-Pharmacological Interventions: Position/Reposition - Maternal Trauma Maternal Trauma: N/A - Assessment Heart Rate: 152 Heart Rate - NICHD Category: Category I (Normal) = 0 - Total Score Total Score (Post): 0 - Post Treatment Level of Risk Post Treatment Level of Risk: Low (0-5) Physician Notification (Post) - Physician Notified Physician Notified Date: 11/20/17 Physician Notified Time: 08:30 Physician/Practitioner Notified:: Freddie Spoke With: Freddie New Order Received: Yes - Notification Comment Comment: Dr Frazier here in department, verbal report given by Dr Palencia, ANTON and US results reviewed per Dr Frazier, pt home on pelvic rest. Disposition - Disposition OB Disposition: Discharge to home Discharge Date: 11/20/17 Discharge Time: 08:38 I agree with the RN Medical Screening Exam: Yes Risk & Benefit of care provided described in d/c instruction: Yes Diagnosis: RELATED CONDITIONS, UNSPECIFIED, SECOND TRIMESTER
== END 2017-11-20 08:38 | disposition home or self-care (01) ==
LOC: FBPOP 06:46
PROVIDERS: ATTEND Obstetrics & Gynecology
DX: O20.9 Hemorrhage in early pregnancy, unspecified (principal); O36.5920 Maternal care for other known or suspected poor fetal growth, second trimester, not applicable or unspecified; Z3A.19 19 weeks gestation of pregnancy
CPT/HCPCS: 81001; 76805; G0463; 99213

== ENCOUNTER 2018-01-27 15:51 | Emergency (ER) | payer OTHER ==
[2018-01-27 17:42] LABS: Basophils # (A) 0.1 k/uL (0-0.2); Basophils % (A) 1 %; Eosinophils # (A) 0.2 k/uL (0-0.7); Eosinophils % (A) 3 %; HGB 12.4 gm/dL (11.4-16.0); Lymphocytes # (A) 1.6 k/uL (1.0-4.8); Lymphocytes % (A) 17 %; MCH 27.4 pg (25.0-35.0); MCHC 33.6 g/dL (31.0-37.0); MCV 81.4 fL (80.0-100.0); Monocytes # (A) 0.6 k/uL (0-1.0); Monocytes % (A) 6 %; Neutrophils # (A) 7.1 k/uL (1.3-7.7); Neutrophils % (A) 73 %; Platelet Count 287 k/uL (150-450); RBC 4.55 m/uL (3.80-5.40); RDW 14.6 % (11.5-15.5); WBC 9.7 k/uL (3.8-10.6)
[2018-01-27 18:02] LABS: ALT 36 U/L (9-52); AST 27 U/L (14-36); Albumin 3.2 g/dL (3.5-5.0); Alkaline Phosphatase 68 U/L (38-126); Anion Gap 7 mmol/L; Blood Urea Nitrogen 8 mg/dL (7-17); Calcium 9.2 mg/dL (8.4-10.2); Carbon Dioxide 20 mmol/L (22-30); Chloride 110 mmol/L (98-107); Glucose 82 mg/dL (74-99); Potassium 4.4 mmol/L (3.5-5.1); Sodium 137 mmol/L (137-145); Total Bilirubin 0.4 mg/dL (0.2-1.3); Total Protein 6.2 g/dL (6.3-8.2)
[2018-01-27] MEDS ORDERED: SODIUM CHLORIDE 0.9% 1,000 ML IV STA (18:34)
--- NOTE | 2018-01-27 18:46 | ED ---
Extremity Problem HPI - General Chief complaint: Extremity Problem,Nontraumatic Stated complaint: ARM PROBLEM, DIZZINESS, 28 WEEKS Time Seen by Provider: 01/27/18 18:10 Source: patient, RN notes reviewed Mode of arrival: ambulatory Limitations: no limitations - History of Present Illness Initial comments: This is a 22-year-old female who presents to the emergency department with chief complaint of hand numbness. Patient states that she is currently 28 weeks . For the past 2 weeks she has been experiencing numbness and tingling in both of her hands while sleeping. She states that she has to dangle her arms off the psych beds and we will her fingers to get feeling back into them. She states over the past couple of days she is now experiencing the symptoms during the day. She states that if she doesn't move them for a few minutes her hands while: Numb and when she moves her fingers she feels a shock sensation. Patient states that symptom onset is not positional and involves the entire hand. Denies any neck pain. Denies fevers or chills, chest pain or shortness of breath, abdominal pain, nausea or vomiting. Patient does state that she feels dizzy in the mornings when she wakes up but this resolves. Denies any medical issues and states she takes no prescription medication. - Related Data Home Medications Medication Instructions Recorded Confirmed Cetirizine HCl [Zyrtec] 10 mg PO DAILY PRN 01/06/17 01/27/18 Pnv No.95/Ferrous Fum/Folic AC 1 tab PO DAILY 09/19/17 01/27/18 [ Multivitamin Tablet] diphenhydrAMINE HCL [Benadryl] 25 mg PO DAILY 09/19/17 01/27/18 Acetaminophen [Tylenol] 325 mg PO Q6H PRN 01/27/18 01/27/18 Allergies Allergy/AdvReac Type Severity Reaction Status Date / Time amoxicillin AdvReac Nausea & Verified 01/27/18 17:28 Vomiting Review of Systems ROS Statement: Those systems with pertinent positive or pertinent negative responses have been documented in the HPI. ROS Other: All systems not noted in ROS Statement are negative. Past Medical History Past Medical History: No Reported History History of Any Multi-Drug Resistant Organisms: None Reported Past Surgical History: No Surgical Hx Reported Past Psychological History: Anxiety Smoking Status: Never smoker Past Alcohol Use History: None Reported Past Drug Use History: None Reported General Exam - General Exam Comments Initial Comments: General: Awake and alert, well-developed; in no apparent distress. HEENT: Head atraumatic, normocephalic. Pupils are equal, round and reactive to light. Extraocular movements intact. Oropharynx moist without erythema or exudate. Neck: Supple. Normal ROM. No tenderness Cardiovascular: Regular rate and rhythm. No murmurs, rubs or gallops. Chest symmetrical. Radial pulses are 2+ equal and palpable bilaterally. Respiratory: Lungs clear to auscultation bilaterally. No wheezes, rales or rhonchi. Normal respiratory effort with no use of accessory muscles. Musculoskeletal: Normal ROM, no tenderness bilateral upper and lower extremities. Ambulating normally. Normal and equal threat monitoring analyst strength bilaterally. Negative Phalen's and Tinel's tests. Skin: [place], warm and dry without rashes or lesions. Neurological: Alert and oriented x3. CN II-XII grossly intact. Speech is fluent and answers are appropriate. No focal neuro deficits. Psychiatric: Normal mood and affect. No overt signs of depression or anxiety noted. Limitations: no limitations Course Vital Signs 01/27/18 01/27/18 16:30 19:14 Temperature 98.3 F 97.8 F Pulse Rate 96 97 Respiratory 20 16 Rate Blood Pressure 121/82 123/83 O2 Sat by Pulse 98 98 Oximetry Medical Decision Making - Medical Decision Making This is a 22-year-old female, currently 28 weeks presents to the emergency department with chief complaint of bilateral hand numbness and tingling. Patient reports symptoms have been present for approximately 2 weeks. She states that it only occurs at night but over the past 2 days has been occurring during the day. Symptoms involve the entire hand and it's non- positional. Patient denies any medical issues. She denies neck pain. There are no focal neuro deficits on exam. Patient is neurovascularly intact. Normal strength bilaterally. Basic laboratory studies were obtained. Chloride is slightly elevated at 110 and CO2 is 20. Patient was given a liter bolus. Recommended that she follow-up with her primary care provider and OPERATIONAL TRAINER. Vital signs are stable and she is in no acute distress. She'll be discharged home at this time. She is in agreement and voices understanding. All questions were answered. Case was discussed with attending physician, Dr. Edouard. - Lab Data Result diagrams: 01/27/18 17:18 01/27/18 17:18 Lab Results 01/27/18 01/27/18 Range/Units 17:18 17:18 WBC 9.7 (3.8-10.6) k/uL RBC 4.55 (3.80-5.40) m/uL Hgb 12.4 (11.4-16.0) gm/dL Hct 37.0 (34.0-46.0) % MCV 81.4 (80.0-100.0) fL MCH 27.4 (25.0-35.0) pg MCHC 33.6 (31.0-37.0) g/dL RDW 14.6 (11.5-15.5) % Plt Count 287 (150-450) k/uL Neutrophils % 73 % Lymphocytes % 17 % Monocytes % 6 % Eosinophils % 3 % Basophils % 1 % Neutrophils # 7.1 (1.3-7.7) k/uL Lymphocytes # 1.6 (1.0-4.8) k/uL Monocytes # 0.6 (0-1.0) k/uL Eosinophils # 0.2 (0-0.7) k/uL Basophils # 0.1 (0-0.2) k/uL Sodium 137 (137-145) mmol/L Potassium 4.4 (3.5-5.1) mmol/L Chloride 110 H (98-107) mmol/L Carbon Dioxide 20 L (22-30) mmol/L Anion Gap 7 mmol/L BUN 8 (7-17) mg/dL Creatinine 0.55 (0.52-1.04) mg/dL Est GFR (CKD-EPI)AfAm >90 (>60 ml/min/1.73 sqM) Est GFR (CKD-EPI)NonAf >90 (>60 ml/min/1.73 sqM) Glucose 82 (74-99) mg/dL Calcium 9.2 (8.4-10.2) mg/dL Total Bilirubin 0.4 (0.2-1.3) mg/dL AST 27 (14-36) U/L ALT 36 (9-52) U/L Alkaline Phosphatase 68 (38-126) U/L Total Protein 6.2 L (6.3-8.2) g/dL Albumin 3.2 L (3.5-5.0) g/dL Disposition Clinical Impression: Numbness and tingling in both hands Disposition: HOME SELF-CARE Condition: Good Instructions: Paresthesia (ED) Additional Instructions: As discussed, please follow-up with your OPERATIONAL TRAINER. Please follow up with primary care provider within 1-2 days. Return to emergency department if symptoms should worsen or any concerns arise. Is patient prescribed a controlled substance at d/c from ED?: No Referrals: Ania Babcock MD [Primary Care Provider] - 1-2 days Time of Disposition: 19:26
[2018-01-27 19:16] VITALS: RESP 16
[2018-01-27 19:55] VITALS: BP 131/90; PULSE 91; TEMP 97.3
== END 2018-01-27 19:50 | disposition home or self-care (01) ==
LOC: EC 15:51
DX: O99.89 Other specified diseases and conditions complicating pregnancy, childbirth and the puerperium (principal); R20.2 Paresthesia of skin; R20.0 Anesthesia of skin; O99.283 Endocrine, nutritional and metabolic diseases complicating pregnancy, third trimester; E87.8 Other disorders of electrolyte and fluid balance, not elsewhere classified; Z88.0 Allergy status to penicillin; Z79.899 Other long term (current) drug therapy; Z3A.28 28 weeks gestation of pregnancy
CPT/HCPCS: 36415; 80053; 85025; 99284

== ENCOUNTER 2018-02-18 12:24 | Outpatient (CLI) | payer OTHER ==
[2018-02-18 13:03] VITALS: RESP 18
[2018-02-18 13:06] VITALS: TEMP 97.7
[2018-02-18 13:39] LABS: AST 16 U/L (14-36); Blood Urea Nitrogen 6 mg/dL (7-17); LDH 367 U/L (313-618); Partial Thromboplastin Time 23.5 sec (22.0-30.0); Prothrombin Time 9.8 sec (9.0-12.0); Uric Acid 3.6 mg/dL (3.7-7.4)
[2018-02-18 14:12] LABS: HGB 11.2 gm/dL (11.4-16.0); MCH 27.9 pg (25.0-35.0); MCHC 33.9 g/dL (31.0-37.0); MCV 82.3 fL (80.0-100.0); Mean Platelet Volume 7.5; Platelet Count 276 k/uL (150-450); RBC 4.01 m/uL (3.80-5.40); RDW 14.7 % (11.5-15.5); WBC 10.5 k/uL (3.8-10.6)
[2018-02-18 14:36] VITALS: BP 115/57; PULSE 78
[2018-02-18 14:42] LABS: Eosinophils # (M) 0.42 k/uL (0-0.7); Lymphocytes # (M) 1.58 k/uL (1.0-4.8); Metamyelocytes # (M) 0.21 k/uL (0); Metamyelocytes % 2 %; Monocytes # (M) 0.63 k/uL (0-1.0); Myelocytes # (M) 0.11 k/uL (0); Myelocytes % 1 %; Neutrophils # (M) 7.77 k/uL (1.3-7.7); Neutrophils % (M) 74 %; Nucleated Red Blood Cells 0 /100 WBC (0-0); Total Cells Counted 200
--- NOTE | 2018-03-22 11:45 | P.MSEPDOC ---
Presenting Problems - Arrival Data Date of Arrival on Unit: 02/18/18 Time of Arrival on Unit: 12:41 Mode of Transport: Ambulatory - Complaint Comment: pt sent over from office with orders for a PIH workup. pt was seen in office prior to being sent here Medical History - Information : 1 Para: 0 Term: 0 : 0 Abortions: Spontaneous or Elective: 0 Number of Living Children: 0 - Gestational Age Gestational Age by STEFANY (wks/days): 31 Weeks and 5 Days Review of Systems - Review of Systems Constitutional: Rapid weight gain Breast: No problems ENT: No problems Cardiovascular: No problems Respiratory: No problems Gastrointestinal: No problems Genitourinary: No problems Musculoskeletal: No problems Neurological: No problems Skin: No problems Vital Signs - Temperature Temperature: 97.7 F Temperature Source: Oral - Pulse Right Brachial Pulse Rate: 78 Pulse Assessment Method: Automatic Cuff - Respirations Respiratory Rate: 18 Oxygen Delivery Method: Room Air - Blood Pressure Right Arm Blood Pressure: 115/57 Blood Pressure Mean: 76 Blood Pressure Source: Automatic Cuff Medical Screen Scoring (Pre) - Cervical Exam Dilation: Exam Deferred Effacement: Exam Deferred - Uterine Contractions Frequency: N/A Duration: N/A Intensity: N/A - Maternal Vital Signs Maternal Temperature: N/A Maternal Blood Pressure: N/A Signs of Preeclampsia: N/A Maternal Respirations: N/A - Pain Assessment Pain Scale Used: Numeric (1 - 10) Pain Intensity: 0 Pain Management Goal: 0 Pain Behavior: Vocalization - Maternal Trauma Maternal Trauma: N/A - Assessment Baseline FHR: 130 Heart Rate - NICHD Category: Category I (Normal) = 0 NST: Reactive Position: N/A - Total Score Total Score (Pre): 0 Physician Notification (Post) - Physician Notified Physician Notified Date: 02/18/18 Physician Notified Time: 14:25 Spoke With: dr payne New Order Received: Yes - Notification Comment Comment: labs wnl b/p wnl. pt discharged to home Disposition - Disposition OB Disposition: Discharge to home Discharge Date: 02/18/18 Discharge Time: 14:30 I agree with the RN Medical Screening Exam: Yes Risk & Benefit of care provided described in d/c instruction: Yes Diagnosis: GESTATIONAL HTN W/O SIGNIFICANT PROTEINURIA, THIRD TRIMESTER
== END 2018-02-18 14:30 | disposition home or self-care (01) ==
LOC: FBPOP 12:24
PROVIDERS: ATTEND Obstetrics & Gynecology
DX: O13.3 Gestational [pregnancy-induced] hypertension without significant proteinuria, third trimester (principal); Z3A.31 31 weeks gestation of pregnancy
CPT/HCPCS: 59025; 82565; 83615; 84450; 84520; 84550; 85025; 85610; 85730; G0463; 99215

== ENCOUNTER 2018-03-31 19:32 | Outpatient (CLI) | payer OTHER ==
[2018-03-31 20:24] VITALS: BP 124/71; PULSE 93; RESP 16; TEMP 98.1
--- NOTE | 2018-04-10 07:44 | P.MSEPDOC ---
Presenting Problems - Arrival Data Date of Arrival on Unit: 03/31/18 Time of Arrival on Unit: 19:32 Mode of Transport: Ambulatory - Complaint OB-Reason for Admission/Chief Complaint: NST Medical History - Information : 1 Para: 0 Term: 0 : 0 Abortions: Spontaneous or Elective: 0 Number of Living Children: 0 - Gestational Age Gestational Age by STEFANY (wks/days): 37 Weeks and 4 Days - History Comment: polyhydramnios Review of Systems - Review of Systems Constitutional: No problems Breast: No problems ENT: No problems Cardiovascular: No problems Respiratory: No problems Gastrointestinal: No problems Genitourinary: No problems Musculoskeletal: No problems Neurological: No problems Skin: No problems Vital Signs - Temperature Temperature: 98.1 F Temperature Source: Oral - Pulse Right Sitting Brachial Pulse Rate: 93 Pulse Assessment Method: Automatic Cuff - Respirations Respiratory Rate: 16 Oxygen Delivery Method: Room Air O2 Sat by Pulse Oximetry: 97 - Blood Pressure Right Arm Sitting Blood Pressure: 124/71 Blood Pressure Mean: 88 Medical Screen Scoring (Pre) - Cervical Exam Dilation: Exam Deferred Effacement: Exam Deferred Membranes: Intact - Uterine Contractions Frequency: > 5 minutes apart = 1 Duration: N/A Intensity: N/A - Maternal Vital Signs Maternal Temperature: N/A Maternal Blood Pressure: N/A Signs of Preeclampsia: N/A Maternal Respirations: N/A - Maternal Trauma Maternal Trauma: N/A - Assessment Baseline FHR: 125 Heart Rate - NICHD Category: Category I (Normal) = 0 NST: Reactive Position: N/A Station: N/A - Total Score Total Score (Pre): 1 - Level of Risk Level of Risk: Low (0-5) Physician Notification (Pre) - Physician Notified Physician Notified Date: 03/31/18 Physician Notified Time: 20:08 Physician/Practitioner Notifed:: Dr Frazier New Order Received: Yes Disposition - Disposition OB Disposition: Discharge to home, Written follow up instructions reviewed Discharge Date: 03/31/18 Discharge Time: 20:09 I agree with the RN Medical Screening Exam: Yes Risk & Benefit of care provided described in d/c instruction: Yes Diagnosis: POLYHYDRAMNIOS, THIRD TRIMESTER, FETUS 1
== END 2018-03-31 20:09 | disposition home or self-care (01) ==
LOC: FBPOP 19:32
PROVIDERS: ATTEND Obstetrics & Gynecology
DX: O40.3XX1 Polyhydramnios, third trimester, fetus 1 (principal); Z3A.37 37 weeks gestation of pregnancy
CPT/HCPCS: 59025; G0463; 99213

== ENCOUNTER 2018-04-06 16:11 | Outpatient (CLI) | payer OTHER ==
[2018-04-06 16:52] VITALS: BP 136/73; PULSE 96; RESP 16; TEMP 98.3
--- NOTE | 2018-04-28 17:45 | P.MSEPDOC ---
Presenting Problems - Arrival Data Date of Arrival on Unit: 04/06/18 Time of Arrival on Unit: 16:13 Mode of Transport: Ambulatory - Complaint OB-Reason for Admission/Chief Complaint: NST Medical History - Information : 1 Para: 0 - Gestational Age Gestational Age by STEFANY (wks/days): 38 Weeks and 3 Days - History Comment: polyhydramnios Review of Systems - Review of Systems Constitutional: No problems Breast: No problems ENT: No problems Cardiovascular: No problems Respiratory: No problems Gastrointestinal: No problems Genitourinary: No problems Musculoskeletal: No problems Neurological: No problems Skin: No problems Vital Signs - Temperature Temperature: 98.3 F Temperature Source: Oral - Pulse Right Sitting Brachial Pulse Rate: 96 Pulse Assessment Method: Automatic Cuff - Respirations Respiratory Rate: 16 Oxygen Delivery Method: Room Air O2 Sat by Pulse Oximetry: 98 - Blood Pressure Right Arm Sitting Blood Pressure: 136/73 Blood Pressure Mean: 94 Blood Pressure Source: Automatic Cuff Medical Screen Scoring (Pre) - Cervical Exam Dilation: Exam Deferred Effacement: Exam Deferred Membranes: Intact - Uterine Contractions Frequency: N/A Duration: N/A Intensity: N/A - Maternal Vital Signs Maternal Temperature: N/A Maternal Blood Pressure: N/A Signs of Preeclampsia: N/A Maternal Respirations: N/A - Pain Assessment Pain Scale Used: Numeric (1 - 10) Pain Intensity: 0 - Assessment Baseline FHR: 130 Heart Rate - NICHD Category: Category I (Normal) = 0 NST: Reactive Position: N/A Station: N/A - Total Score Total Score (Pre): 0 - Level of Risk Level of Risk: N/A Physician Notification (Pre) - Physician Notified Physician Notified Date: 04/06/18 Physician Notified Time: 16:40 Physician/Practitioner Notifed:: dr boyer Spoke With: Dr Boyer New Order Received: Yes - Notification Comment Comment: pt may be discharged after reactive nst Disposition - Disposition OB Disposition: Discharge to home Discharge Date: 04/06/18 Discharge Time: 17:00 I agree with the RN Medical Screening Exam: Yes Risk & Benefit of care provided described in d/c instruction: Yes Diagnosis: GESTATIONAL HTN W/O SIGNIFICANT PROTEINURIA, THIRD TRIMESTER
== END 2018-04-06 17:00 | disposition home or self-care (01) ==
LOC: FBPOP 16:11
PROVIDERS: ATTEND Obstetrics & Gynecology
DX: O13.3 Gestational [pregnancy-induced] hypertension without significant proteinuria, third trimester (principal); Z3A.38 38 weeks gestation of pregnancy
CPT/HCPCS: 59025

== ENCOUNTER 2018-04-08 17:00 | Inpatient (IN) | payer OTHER ==
[2018-04-08] MEDS ORDERED: LIDOCAINE 0.5% (PF) 5 MG/ML (50 ML SDV) SQ PRN (17:12)
[2018-04-08] MEDS ORDERED: TERBUTALINE 1 MG/ML VIAL SQ PRN (17:12)
[2018-04-08] MEDS ORDERED: OXYTOCIN 10 UNIT/ML 1 ML VIAL IM PRN (17:12)
[2018-04-08] MEDS ORDERED: CARBOPROST TROMETHAMINE 250 MCG/ML 1 ML AMP IM PRN (17:12)
[2018-04-08] MEDS ORDERED: METHYLERGONOVINE 0.2 MG/ML 1 ML AMP IM PRN (17:12)
[2018-04-08] MEDS ORDERED: DINOPROSTONE 10 MG INSERT.ER VAGINAL ONE (17:14)
[2018-04-08 17:24] VITALS: BMI 49.9
--- NOTE | 2018-04-08 18:08 | P.HPOB ---
History of Present Illness H&P Date: 04/08/18 Chief Complaint: Into uterine at 39 weeks: Suspected macrosomia: Polyhydramnios Ania is a 22-year-old at 39 weeks 3 days' gestation based on a 12 week ultrasound with an EDC of 04/12/2018. She over the last few weeks has developed polyhydramnios and had multiple NSTs and evaluations done. She is group B strep positive. While she did fail her 1 hour Glucola screen she did pass her 3 hour Glucola screen. Other torch titers were done and were all negative. His clear why she has a worsening polyhydramnios, however as she is past 39 weeks at this point and getting very uncomfortable Will admit for Cervidil ripening and induction for polyhydramnios. Risks/benefits/ alternatives to this were discussed with the patient in detail including but not limited to issues and heart rate irregularities and particularly increased risk of as her cervix is nonfavorable. She is currently closed approximately 50% effaced and -3 station. Pertinent labs do include O+ blood type Rh and it was negative, rubella is nonimmune, hepatitis B surface antigen/RPR/HIV were all negative. On physical exam vital signs are afebrile, however her initial blood pressure today was 155/78 indicating potential for gestational hypertension as well. We'll have to monitor this closely as the evening wears on. All questions were answered for her at this time. Heart regular, lungs clear and extremities are without pain. Past Medical History Past Medical History: No Reported History History of Any Multi-Drug Resistant Organisms: None Reported Past Surgical History: No Surgical Hx Reported Additional Past Surgical History / Comment(s): extra toe removed at 10 month, reconstructive at 18 months Past Anesthesia/Blood Transfusion Reactions: No Reported Reaction Past Psychological History: Anxiety Smoking Status: Never smoker Past Alcohol Use History: None Reported Past Drug Use History: None Reported - Past Family History Mother Family Medical History: AFIB, Hypertension, Sleep Apnea/CPAP/BIPAP, Vascular Disorder Medications and Allergies Home Medications Medication Instructions Recorded Confirmed Type Pnv No.95/Ferrous Fum/Folic AC 1 tab PO DAILY 09/19/17 04/08/18 History [ Multivitamin Tablet] diphenhydrAMINE HCL [Benadryl] 25 mg PO DAILY 09/19/17 04/08/18 History Allergies Allergy/AdvReac Type Severity Reaction Status Date / Time amoxicillin AdvReac Nausea & Verified 04/08/18 17:10 Vomiting Exam Osteopathic Statement: *. No significant issues noted on an osteopathic structural exam other than those noted in the History and Physical/Consult. Vital Signs Temp Pulse Resp BP 04/08/18 17:09 97.6 F 95 16 152/75 Intake and Output 04/08/18 04/08/18 04/08/18 06:59 14:59 22:59 Other: Weight 131.995 kg - OBG Physical Exam Breast: both: normal (no masses) Abdomen: bowel sounds normal, no diffuse tenderness, no bruit present, no guarding noted, no hepatomegaly, no splenomegaly, no mass Vulva: both: normal Vagina: normal moisture, no discharge Cervix: no lesion, no discharge Uterus: normal size, normal contour Adnexa: both: normal Anus/Rectum: normal perianal skin, no rectal mass, no hemorrhoids, heme negative
[2018-04-08] MEDS ORDERED: BUTORPHANOL 1 MG/ML 1 ML VIAL IV PRN (19:04)
[2018-04-09] MEDS ORDERED: OXYTOCIN 20 UNITS/1000 ML NS 1,000 ML IV SCH (05:00)
[2018-04-09] MEDS: LACTATED RINGERS 1,000 ML IV SCH ×4 (05:15→21:38)
[2018-04-09] MEDS: CLINDAMYCIN 900 MG in DEXTROSE 5% IN WATER 50 ML IVPB SCH ×4 (05:28→21:39)
[2018-04-09 05:45] LABS: Basophils % (A) 0 %; Eosinophils # (A) 0.3 k/uL (0-0.7); Eosinophils % (A) 3 %; HCT 35.7 % (34.0-46.0); Hypochromasia Slight; Lymphocytes # (A) 2.1 k/uL (1.0-4.8); Lymphocytes % (A) 17 %; MCH 24.2 pg (25.0-35.0); MCHC 30.9 g/dL (31.0-37.0); MCV 78.5 fL (80.0-100.0); Monocytes # (A) 0.6 k/uL (0-1.0); Monocytes % (A) 5 %; Neutrophils # (A) 8.6 k/uL (1.3-7.7); Neutrophils % (A) 71 %; Platelet Count 333 k/uL (150-450); RBC 4.55 m/uL (3.80-5.40); RDW 15.3 % (11.5-15.5); WBC 12.1 k/uL (3.8-10.6)
[2018-04-09] MEDS ORDERED: ceFAZolin IN SWFI 2 GM/20 ML SYRINGE IVP ONE (12:10)
[2018-04-09] MEDS ORDERED: CITRIC ACID-SODIUM CITRATE 15 ML CUP PO ONE (12:10)
[2018-04-09] MEDS ORDERED: PHENYLEPHRINE-0.9% NACL SYG 1 MG/10 ML SYRINGE ONE (12:28)
[2018-04-09] MEDS ORDERED: MORPHINE SULFATE (PF) 0.3 MG/0.3 ML SYR ONE (12:28)
[2018-04-09] MEDS ORDERED: NALBUPHINE 10 MG/ML VIAL (10ML MDV) ONE (12:28)
[2018-04-09] MEDS ORDERED: KETOROLAC 30 MG/ML 1 ML VIAL ONE (12:28)
[2018-04-09] MEDS ORDERED: ONDANSETRON 4 MG/2 ML VIAL ONE (12:28)
[2018-04-09] MEDS ORDERED: OXYTOCIN 10 UNIT/ML 1 ML VIAL ONE (12:28)
[2018-04-09] MEDS ORDERED: NALBUPHINE 10 MG/ML VIAL (10ML MDV) IV PRN (13:07)
[2018-04-09] MEDS ORDERED: NALOXONE 0.4 MG/ML 1 ML VIAL IV PRN (13:07)
[2018-04-09] MEDS ORDERED: KETOROLAC 30 MG/ML 1 ML VIAL IVP PRN (13:07)
[2018-04-09] MEDS ORDERED: diphenhydrAMINE 50 MG/ML 1 ML VIAL IVP PRN ×2 (13:07→13:22)
[2018-04-09] MEDS ORDERED: MORPHINE SULFATE 4 MG/ML SYRINGE IVP PRN (13:07)
[2018-04-09] MEDS ORDERED: ACETAMINOPHEN TAB 325 MG TAB PO PRN (13:22)
[2018-04-09] MEDS ORDERED: diphenhydrAMINE 50 MG CAP PO PRN (13:22)
[2018-04-09] MEDS ORDERED: ONDANSETRON 4 MG/2 ML VIAL IVP PRN (13:22)
[2018-04-09] MEDS ORDERED: SIMETHICONE 80 MG CHEWABLE PO PRN (13:22)
[2018-04-09] MEDS ORDERED: METOCLOPRAMIDE 5 MG/ML 2 ML VIAL IVP PRN (13:22)
[2018-04-09] MEDS ORDERED: MEASLES-MUMPS-RUBELLA VACC/PF 12,500 UNIT/0.5 ML VIAL SQ ONE (13:22)
[2018-04-09] MEDS ORDERED: diphenhydrAMINE 25 MG CAP PO PRN (13:22)
[2018-04-09] MEDS ORDERED: ZOLPIDEM 5 MG TAB PO PRN (13:22)
--- NOTE | 2018-04-09 13:28 | P.OP ---
Date of Procedure: 04/09/18 Preoperative Diagnosis: Intrauterine at term: Polyhydramnios: Suspected macrosomia Postoperative Diagnosis: Same with adhesions Procedure(s) Performed: Primary low-transverse section Anesthesia: spinal Surgeon: Darwin Frazier Telegraphic Instrument Supervisor #1: Odalis Palencia Estimated Blood Loss (ml): 600 IV fluids (ml): 1,000 Urine output (ml): 100 Pathology: other (Placenta) Condition: stable Disposition: floor Operative Findings: Male scores of 3, 9, 9 at one, 5, and 10 minutes. Weight was 8 lbs. 4 oz. there is a significant amount of filmy scarring on the anterior uterus including the fallopian tubes. Left fallopian tube was pulled significantly medially but fimbriated end appeared oh intact. Blunt dissection of this tissue away from the uterine tissues was performed. Description of Procedure: Patient was taken to the operating suite where a final anesthetic was found be adequate. She was prepped and draped in the normal sterile fashion and placed in dorsal supine position with leftward tilt. Initially a Pfannenstiel skin incision was made and this incision was then carried through to underlying layer of fascia with the second knife. Fascia was then nicked in the midline and this opening was extended laterally with Tam scissors. Superior and inferior aspect of this incision were then grasped tented up and bluntly and sharply dissected off the rectus muscles. X muscles were then divided the midline and blunt dissection the peritoneum was made. This opening was then extended superiorly and inferiorly with good visualization of both bowel bladder. And adhesions were noted at this point. Bladder blade was then placed and the bladder flap identified entered sharply with Metzenbaum scissors this opening was then extended across face uterus with Metzenbaum scissors. Knife was then used to incise uterus this opening was fully developed with hemostat. Much the fluid was drained before delivery of the head. Head was then atraumatically delivered followed by anterior posterior shoulders with mouth nares. Been bulb suction. Umbilical cord was then clamped cut usual fashion an nursery personnel was present to assume care. Placenta was then delivered intact and Pitocin was added to the IV. Uterus was then exteriorized cleared of clots and debris and closed in 2 layers with 0 Vicryl suture. Once hemostasis was obtained blunt dissection of the adhesions to the left fallopian tube were done. Right fallopian tube was difficult to identify through the scar tissue but in discussing with her she denies ever having surgery on this fallopian tube. Once this was accomplished blood and debris was suctioned from the posterior cul-de-sac and the uterus was reinserted into the abdomen. Peritoneal layer was then reapproximated with 0 Vicryl suture. Fascial layer was closed with 0 Vicryl suture. One layer of 3-0 Vicryl was placed in the deep subcuticular tissues reapproximate the skin and close the space. Skin was then closed with 3-0 Vicryl on a Desmond needle. Sponge, lap, needle counts were all correct 2. Patient was then taken to the recovery room and satisfactory condition.
[2018-04-09] MEDS: SENNOSIDES-DOCUSATE SODIUM 1 EACH TAB PO SCH (20:22)
[2018-04-10 07:03] LABS: Basophils # (A) 0.1 k/uL (0-0.2); Basophils % (A) 1 %; Eosinophils # (A) 0.2 k/uL (0-0.7); Eosinophils % (A) 2 %; HCT 31.4 % (34.0-46.0); HGB 10.1 gm/dL (11.4-16.0); Hypochromasia Slight; Lymphocytes # (A) 1.4 k/uL (1.0-4.8); Lymphocytes % (A) 17 %; MCH 25.5 pg (25.0-35.0); MCHC 32.2 g/dL (31.0-37.0); Mean Platelet Volume 7.6; Monocytes # (A) 0.5 k/uL (0-1.0); Monocytes % (A) 6 %; Neutrophils # (A) 5.9 k/uL (1.3-7.7); Neutrophils % (A) 72 %; Platelet Count 250 k/uL (150-450); RBC 3.97 m/uL (3.80-5.40); RDW 15.2 % (11.5-15.5); WBC 8.2 k/uL (3.8-10.6)
--- NOTE | 2018-04-10 07:09 | P.PN ---
Progress Note - Text Postop day 1 Low transverse section under spinal anesthesia Patient denies any complaints of headache/ pruritus Spinal site looks clean dry and intact Plan of care for primary team to maintain anesthesia signoff
--- NOTE | 2018-04-10 07:30 | P.PNOBGPC ---
Subjective - Subjective Principal diagnosis: Postop day 1 Interval history: Overall generally is doing very well. She is ambulating, voiding and tolerating her diet. She voices no complaints other than mild incisional pain Patient reports: Reports appetite normal, Reports voiding normally, Reports pain well controlled, Reports ambulating normally : doing well Objective - Vital Signs Latest vital signs: Vital Signs Temp Pulse Resp BP Pulse Ox 04/10/18 06:00 20 04/10/18 04:00 97.8 F 92 18 122/77 98 04/10/18 02:00 18 04/10/18 00:00 98 F 93 16 106/64 97 04/09/18 22:00 16 04/09/18 20:00 98.3 F 91 16 132/90 97 04/09/18 18:00 16 04/09/18 16:06 14 04/09/18 15:35 97.2 F L 88 14 135/77 04/09/18 15:05 83 16 142/88 99 04/09/18 14:35 81 14 131/71 98 04/09/18 14:20 86 16 121/79 04/09/18 14:08 16 98 04/09/18 14:05 80 16 110/53 98 04/09/18 13:50 88 16 115/55 04/09/18 13:35 97 F L 90 16 110/58 04/09/18 13:08 16 99 Intake and Output 04/09/18 04/10/18 04/10/18 22:59 06:59 14:59 Output Total 1025 Balance -1025 Output: Urine 725 Uretheral (Espinoza) 425 Other 300 Other: Voiding Method Indwelling Catheter # Voids 3 - Exam Lungs: bilateral: normal Chest: Normal S1, Normal S2 Extremities: Present: normal Abdomen: Present: normal appearance, soft. Absent: distention, tenderness Incision: Present: normal, dry, intact Uterus: Present: normal, firm - Labs Labs: Abnormal Lab Results - Last 24 Hours (Table) 04/10/18 Range/Units 06:25 Hgb 10.1 L (11.4-16.0) gm/dL Hct 31.4 L (34.0-46.0) % MCV 79.0 L (80.0-100.0) fL
[2018-04-10] MEDS: SENNOSIDES-DOCUSATE SODIUM 1 EACH TAB PO SCH (08:03)
[2018-04-10] MEDS: IBUPROFEN 600 MG TAB PO PRN (15:51)
[2018-04-10] MEDS: HYDROcodone/APAP 7.5-325MG 1 EACH TAB PO PRN (22:03)
[2018-04-11] MEDS: SENNOSIDES-DOCUSATE SODIUM 1 EACH TAB PO SCH ×3 (00:08→22:33)
[2018-04-11] MEDS: IBUPROFEN 600 MG TAB PO PRN (04:29)
--- NOTE | 2018-04-11 07:48 | P.PNOBGPC ---
Subjective - Subjective Principal diagnosis: Status post primary section postoperative day #2 Interval history: Patient is doing well. She is ambulating. She is passing flatus and bowel movement. She is urinating without difficulty. Pain is fairly well controlled with oral pain medications. She is bottle feeding. Baby is in the nursery for antibiotics. Patient reports: Reports appetite normal, Reports voiding normally, Reports pain well controlled, Reports ambulating normally [place]: other (In level I nursery on antibiotics), bottle feeding Objective - Vital Signs Latest vital signs: Vital Signs Temp Pulse Resp BP Pulse Ox 04/11/ 00:00 98.1 F 89 16 126/66 85 L 04/10/18 16:00 97.6 F 103 H 18 130/84 96 04/10/18 12:00 98.9 F 99 18 115/82 97 04/10/18 08:15 99.6 F 98 18 116/71 97 - Exam Extremities: Present: normal. Absent: tenderness Abdomen: Present: normal appearance, soft. Absent: distention, tenderness Incision: Present: normal, dry, intact. Absent: erythematous Uterus: Present: normal, firm. Absent: tenderness Assessment and Plan Assessment: Status post primary section postoperative day #2. Plan: Will continue with postoperative care. She does want to stay until they became go home. She is advised that she will have to be discharged on postoperative day #4.
[2018-04-11] MEDS: HYDROcodone/APAP 7.5-325MG 1 EACH TAB PO PRN ×2 (09:25→21:55)
[2018-04-11 17:19] VITALS: RESP 16
[2018-04-12] MEDS: HYDROcodone/APAP 7.5-325MG 1 EACH TAB PO PRN (09:14)
[2018-04-12 09:38] VITALS: TEMP 98.2
[2018-04-12] MEDS: SENNOSIDES-DOCUSATE SODIUM 1 EACH TAB PO SCH (09:40)
--- NOTE | 2018-04-12 11:43 | P.DS ---
Providers Date of admission: 04/08/18 17:01 Expected date of discharge: 04/12/18 Attending physician: Darwin Frazier Primary care physician: Stated None Hospital Course: This is a 22-year-old female 1 para 0 at 39-4/7 weeks who presented for induction of labor secondary to polyhydramnios. She underwent Cervidil cervical ripening followed by oxytocin induction. She did not make any progress and therefore underwent a primary low transverse section on for delivery of a viable male infant with scores of 3 at 1 minute 9 at 5 minutes and 9 at 10 minutes and infant weight of 8 lbs. 4 oz. Her postoperative course was essentially uncomplicated. She is passing flatus and bowel movement and is urinating without difficulty. Pain is been fairly well-controlled with ibuprofen and [place]. Lochia is decreasing. She is bottle feeding. Vital signs are stable. Abdomen is soft with positive bowel sounds 4. Incision is clean dry and intact. Extremities show negative Hom[place]. Impression is status post primary section postoperative day #3. Plan is to discharge home today. Newell will be removed and Steri-Strip's placed prior to discharge. She will be given a prescription for ibuprofen and [place]. She has signed the start taking opioid form and maps have been checked. She is advised to follow up with Dr. Frazier in approximately 2 weeks for a postoperative check and in 6 weeks for a check. She is advised to call the office if she has any further questions or concerns prior to her appointment time. Procedures: Cervidil cervical ripening Oxytocin induction of labor Primary low transverse section on 04/09/2018 Patient Condition at Discharge: Stable Plan - Discharge Summary Discharge Rx Participant: No New Discharge Prescriptions: New HYDROcodone/APAP 7.5-325MG [[place] 7.5-325] 1 each PO Q6H PRN #28 tab PRN Reason: Severe Pain Ibuprofen [Motrin] 600 mg PO Q6HR PRN #60 tab PRN Reason: Mild Pain Or Fever >= 100.5 Continue Pnv No.95/Ferrous Fum/Folic AC [ Multivitamin Tablet] 1 tab PO DAILY No Action diphenhydrAMINE HCL [Benadryl] 25 mg PO DAILY Discharge Medication List Pnv No.95/Ferrous Fum/Folic AC [ Multivitamin Tablet] 1 tab PO DAILY 10/30 [History] diphenhydrAMINE HCL [Benadryl] 25 mg PO DAILY 09/19/17 [History] HYDROcodone/APAP 7.5-325MG [[place] 7.5-325] 1 each PO Q6H PRN #28 tab 04/12/18 [ Rx] Ibuprofen [Motrin] 600 mg PO Q6HR PRN #60 tab 04/12/18 [Rx] Follow up Appointment(s)/Referral(s): Darwin Frazier DO [Doctor of Osteopathic Medicine] - 2 Weeks Activity/Diet/Wound Care/Special Instructions: Instructions 1. Do not begin any exercise program for 3 weeks. 2. Do not resume sexual relations for 3 weeks or longer if uncomfortable. 3. You may take tub baths or showers at any time. 4. You may use tampons if desired after 3 weeks. 5. Keep the area of episiotomy (stitches) clean and dry. 6. If you are not nursing, wear a good fitting, supportive bra during the day and limit fluid intake for at least 1 week to prevent breast engorgement. 7. Call the office, [phone], within the next week to make appointment for your 6 week checkup if it has not already been made. 8. Report any of the following occurrences to the doctor promptly: a. Heavy, excessive bleeding b. Chills, fever c. Burning or frequency of urination d. Pain or redness and breasts if nursing e. Increasing pain or swelling in episiotomy (stitches). In addition to the above instructions, the following additional should be followed: 1. No heavy lifting or straining (exercising) until after 6 week checkup. 2. Keep abdominal incision clean and dry: You may wear a dressing if more comfortable. 3. Make office appointment for 10 days after going home or as instructed by her doctor. Discharge Disposition: HOME SELF-CARE
[2018-04-12 12:26] VITALS: BP 137/86; PULSE 83
== END 2018-04-12 12:45 | disposition home or self-care (01) | DRG 788 ==
LOC: 4FBP 17:01
PROVIDERS: ADMIT Obstetrics & Gynecology; ATTEND Obstetrics & Gynecology
PROC: 3E033VJ Introduction of Other Hormone into Peripheral Vein, Percutaneous Approach (ICD-10-PCS; 2018-04-08)
PROC: 3E0P7VZ Introduction of Hormone into Female Reproductive, Via Natural or Artificial Opening (ICD-10-PCS; 2018-04-08)
PROC: 00HU33Z Insertion of Infusion Device into Spinal Canal, Percutaneous Approach (ICD-10-PCS; 2018-04-09)
PROC: 3E0R3BZ Introduction of Anesthetic Agent into Spinal Canal, Percutaneous Approach (ICD-10-PCS; 2018-04-09)
PROC: 3E0134Z Introduction of Serum, Toxoid and Vaccine into Subcutaneous Tissue, Percutaneous Approach (ICD-10-PCS; 2018-04-09)
PROC: 10D00Z1 Extraction of Products of Conception, Low, Open Approach (ICD-10-PCS; principal; 2018-04-09 12:33)
DX: O40.3XX0 Polyhydramnios, third trimester, not applicable or unspecified (principal); O99.824 Streptococcus B carrier state complicating childbirth; Z23 Encounter for immunization; Z3A.39 39 weeks gestation of pregnancy; Z37.0 Single live birth; Z79.899 Other long term (current) drug therapy; Z86.59 Personal history of other mental and behavioral disorders; Z88.0 Allergy status to penicillin; Z89.429 Acquired absence of other toe(s), unspecified side; Z82.49 Family history of ischemic heart disease and other diseases of the circulatory system; Z83.6 Family history of other diseases of the respiratory system
CPT/HCPCS: 85025; 86850; 86900; 86901; 88307; 90707

== ENCOUNTER 2019-05-10 08:53 | Emergency (ER) | payer OTHER ==
[2019-05-10 08:58] VITALS: RESP 18; TEMP 98.1
[2019-05-10] MEDS ORDERED: KETOROLAC 30 MG/ML 1 ML VIAL IVP STA (09:03)
[2019-05-10] MEDS ORDERED: SODIUM CHLORIDE 0.9% 1,000 ML IV STA (09:03)
--- NOTE | 2019-05-10 09:09 | ED ---
Recheck HPI - General Chief Complaint: Recheck/Abnormal Lab/Rx Stated Complaint: Flank pain Time Seen by Provider: 05/10/19 08:56 Source: patient, RN notes reviewed Mode of arrival: ambulatory Limitations: no limitations - History of Present Illness Initial Comments: This a 23-year-old female presents emergency Department with chief complaint of right sided abdominal pain right flank pain. Patient states started 2 days ago. Patient states pain last night was unbearable. Patient denies any current nausea vomiting diarrhea constipation she has had prior no other abdominal surgeries. Patient states nothing really makes the pain feel better or worse. She denies any fevers or chills she states pains in her ribs with ecchymosis in her abdomen she does not that hurts to eat. - Related Data Home Medications Medication Instructions Recorded Confirmed diphenhydrAMINE HCL [Benadryl] 25 mg PO Q6H PRN 09/19/17 05/10/19 Vitamin C/Biotin [Hair, Skin and 1 tab PO DAILY 05/10/19 05/10/19 Nails] Previous Rx's Medication Instructions Recorded Ibuprofen [Motrin] 600 mg PO Q8HR PRN #30 tab 05/10/19 Allergies Allergy/AdvReac Type Severity Reaction Status Date / Time amoxicillin AdvReac Nausea & Verified 05/10/19 09:21 Vomiting Review of Systems ROS Statement: Those systems with pertinent positive or pertinent negative responses have been documented in the HPI. ROS Other: All systems not noted in ROS Statement are negative. Past Medical History Past Medical History: No Reported History History of Any Multi-Drug Resistant Organisms: None Reported Past Surgical History: No Surgical Hx Reported Additional Past Surgical History / Comment(s): extra toe removed at 10 month, reconstructive at 18 months Past Anesthesia/Blood Transfusion Reactions: No Reported Reaction Past Psychological History: Anxiety Smoking Status: Current every day smoker Past Alcohol Use History: None Reported Past Drug Use History: Marijuana - Past Family History Mother Family Medical History: AFIB, Hypertension, Sleep Apnea/CPAP/BIPAP, Vascular Disorder General Exam Limitations: no limitations General appearance: alert, in no apparent distress Head exam: Present: atraumatic, normocephalic, normal inspection Eye exam: Present: normal appearance, PERRL, EOMI. Absent: scleral icterus, conjunctival injection, periorbital swelling ENT exam: Present: normal exam, mucous membranes moist Neck exam: Present: normal inspection, full ROM. Absent: tenderness, meningismus, lymphadenopathy Respiratory exam: Present: normal lung sounds bilaterally, chest wall tenderness. Absent: respiratory distress, wheezes, rales, rhonchi, stridor Cardiovascular Exam: Present: normal rhythm, tachycardia, normal heart sounds. Absent: systolic murmur, diastolic murmur, rubs, gallop, clicks GI/Abdominal exam: Present: soft, tenderness (Right upper quadrant), normal bowel sounds. Absent: distended, guarding, rebound, rigid Back exam: Absent: CVA tenderness (R), CVA tenderness (L) Neurological exam: Present: alert, oriented X3 Skin exam: Present: warm, dry, intact, normal color. Absent: rash Course Vital Signs 05/10/19 05/10/19 08:56 09:48 Temperature 98.1 F Pulse Rate 107 H 70 Respiratory 18 18 Rate Blood Pressure 122/65 110/77 O2 Sat by Pulse 99 98 Oximetry Medical Decision Making - Medical Decision Making Patient presented for right-sided abdominal, right ribs and pain. Patient's workup was negative at this time. Patient symptoms seem to be related to costochondritis. Patient HAS negative. Return parameters were discussed. - Lab Data Result diagrams: 05/10/19 09:10 05/10/19 09:10 Lab Results 05/10/19 05/10/19 05/10/19 Range/Units 09:10 09:10 09:30 WBC 9.8 (3.8-10.6) k/uL RBC 5.25 (3.80-5.40) m/uL Hgb 14.3 (11.4-16.0) gm/dL Hct 43.9 (34.0-46.0) % MCV 83.7 (80.0-100.0) fL MCH 27.2 (25.0-35.0) pg MCHC 32.5 (31.0-37.0) g/dL RDW 13.5 (11.5-15.5) % Plt Count 275 (150-450) k/uL Neutrophils % 63 % Lymphocytes % 22 % Monocytes % 4 % Eosinophils % 8 % Basophils % 2 % Neutrophils # 6.2 (1.3-7.7) k/uL Lymphocytes # 2.1 (1.0-4.8) k/uL Monocytes # 0.4 (0-1.0) k/uL Eosinophils # 0.7 (0-0.7) k/uL Basophils # 0.2 (0-0.2) k/uL Sodium 140 (137-145) mmol/L Potassium 4.3 (3.5-5.1) mmol/L Chloride 108 H (98-107) mmol/L Carbon Dioxide 25 (22-30) mmol/L Anion Gap 7 mmol/L BUN 13 (7-17) mg/dL Creatinine 0.83 (0.52-1.04) mg/dL Est GFR (CKD-EPI)AfAm >90 (>60 ml/min/1.73 sqM) Est GFR (CKD-EPI)NonAf >90 (>60 ml/min/1.73 sqM) Glucose 111 H (74-99) mg/dL Calcium 9.2 (8.4-10.2) mg/dL Total Bilirubin 0.5 (0.2-1.3) mg/dL AST 21 (14-36) U/L ALT 22 (4-34) U/L Alkaline Phosphatase 76 (38-126) U/L Total Protein 7.5 (6.3-8.2) g/dL Albumin 4.3 (3.5-5.0) g/dL Amylase 46 (30-110) U/L Lipase 72 (23-300) U/L Urine Color Urine Appearance (Clear) Urine pH (5.0-8.0) Ur Specific [place] (1.001-1.035) Urine Protein (Negative) Urine Glucose (UA) (Negative) Urine Ketones (Negative) Urine Blood (Negative) Urine Nitrite (Negative) Urine Bilirubin (Negative) Urine Urobilinogen (<2.0) mg/dL Ur Leukocyte Esterase (Negative) Urine RBC (0-5) /hpf Urine WBC (0-5) /hpf Ur Squamous Epith Cells (0-4) /hpf Urine Mucus (None) /hpf Urine HCG, Qual Not Detected (Not Detectd) 05/10/19 Range/Units 09:30 WBC (3.8-10.6) k/uL RBC (3.80-5.40) m/uL Hgb (11.4-16.0) gm/dL Hct (34.0-46.0) % MCV (80.0-100.0) fL MCH (25.0-35.0) pg MCHC (31.0-37.0) g/dL RDW (11.5-15.5) % Plt Count (150-450) k/uL Neutrophils % % Lymphocytes % % Monocytes % % Eosinophils % % Basophils % % Neutrophils # (1.3-7.7) k/uL Lymphocytes # (1.0-4.8) k/uL Monocytes # (0-1.0) k/uL Eosinophils # (0-0.7) k/uL Basophils # (0-0.2) k/uL Sodium (137-145) mmol/L Potassium (3.5-5.1) mmol/L Chloride (98-107) mmol/L Carbon Dioxide (22-30) mmol/L Anion Gap mmol/L BUN (7-17) mg/dL Creatinine (0.52-1.04) mg/dL Est GFR (CKD-EPI)AfAm (>60 ml/min/1.73 sqM) Est GFR (CKD-EPI)NonAf (>60 ml/min/1.73 sqM) Glucose (74-99) mg/dL Calcium (8.4-10.2) mg/dL Total Bilirubin (0.2-1.3) mg/dL AST (14-36) U/L ALT (4-34) U/L Alkaline Phosphatase (38-126) U/L Total Protein (6.3-8.2) g/dL Albumin (3.5-5.0) g/dL Amylase (30-110) U/L Lipase (23-300) U/L Urine Color Yellow Urine Appearance Cloudy H (Clear) Urine pH 6.5 (5.0-8.0) Ur Specific [place] 1.026 (1.001-1.035) Urine Protein Trace H (Negative) Urine Glucose (UA) Negative (Negative) Urine Ketones Negative (Negative) Urine Blood Negative (Negative) Urine Nitrite Negative (Negative) Urine Bilirubin Negative (Negative) Urine Urobilinogen <2.0 (<2.0) mg/dL Ur Leukocyte Esterase Negative (Negative) Urine RBC <1 (0-5) /hpf Urine WBC 1 (0-5) /hpf Ur Squamous Epith Cells 9 H (0-4) /hpf Urine Mucus Few H (None) /hpf Urine HCG, Qual (Not Detectd) Disposition Clinical Impression: Acute costochondritis Disposition: HOME SELF-CARE Condition: Stable Instructions (If sedation given, give patient instructions): Costochondritis (ED) Additional Instructions: Please return to the Emergency Department if symptoms worsen or any other concerns. Prescriptions: Ibuprofen [Motrin] 600 mg PO Q8HR PRN #30 tab PRN Reason: Pain Is patient prescribed a controlled substance at d/c from ED?: No Referrals: None,Stated [Primary Care Provider] - 1-2 days Time of Disposition: 10:13
[2019-05-10 09:16] LABS: Basophils # (A) 0.2 k/uL (0-0.2); Basophils % (A) 2 %; Eosinophils # (A) 0.7 k/uL (0-0.7); Eosinophils % (A) 8 %; HCT 43.9 % (34.0-46.0); HGB 14.3 gm/dL (11.4-16.0); Lymphocytes # (A) 2.1 k/uL (1.0-4.8); Lymphocytes % (A) 22 %; MCH 27.2 pg (25.0-35.0); MCHC 32.5 g/dL (31.0-37.0); MCV 83.7 fL (80.0-100.0); Mean Platelet Volume 8.2; Monocytes # (A) 0.4 k/uL (0-1.0); Monocytes % (A) 4 %; Neutrophils # (A) 6.2 k/uL (1.3-7.7); Neutrophils % (A) 63 %; Platelet Count 275 k/uL (150-450); RBC 5.25 m/uL (3.80-5.40); RDW 13.5 % (11.5-15.5); WBC 9.8 k/uL (3.8-10.6)
[2019-05-10 09:29] LABS: ALT 22 U/L (4-34); AST 21 U/L (14-36); African American GFR (CKD) >90 (>60 ml/min/1.73 sqM); Albumin 4.3 g/dL (3.5-5.0); Alkaline Phosphatase 76 U/L (38-126); Amylase 46 U/L (30-110); Anion Gap 7 mmol/L; Blood Urea Nitrogen 13 mg/dL (7-17); Calcium 9.2 mg/dL (8.4-10.2); Carbon Dioxide 25 mmol/L (22-30); Chloride 108 mmol/L (98-107); Glucose 111 mg/dL (74-99); Non-African American GFR(CKD) >90 (>60 ml/min/1.73 sqM); Potassium 4.3 mmol/L (3.5-5.1); Sodium 140 mmol/L (137-145); Total Bilirubin 0.5 mg/dL (0.2-1.3); Total Protein 7.5 g/dL (6.3-8.2)
[2019-05-10 09:39] LABS: Appearance,Urine Cloudy (Clear); Bilirubin,Urine Negative (Negative); Blood,Urine Negative (Negative); Color,Urine Yellow; Glucose,Urine (UA) Negative (Negative); Ketones,Urine Negative (Negative); Leukocyte Esterase,Urine Negative (Negative); Mucus,Urine Few /hpf; Nitrite,Urine Negative (Negative); PH, Urine 6.5 (5.0-8.0); Protein,Urine Trace (Negative); RBC,Urine <1 /hpf (0-5); Specific Gravity,Urine 1.026 (1.001-1.035); Squamous Epithelial Cell,Urine 9 /hpf (0-4); Urobilinogen,Urine <2.0 mg/dL (<2.0); WBC,Urine 1 /hpf (0-5)
--- NOTE | 2019-05-10 09:41 | US ---
EXAMINATION TYPE: US abdomen limited DATE OF EXAM: 05/10/2019 COMPARISON: Previous study dated 09/25/2017. CLINICAL HISTORY: RUQ pain. right flank pain for a couple days, no injury, no N/V EXAM MEASUREMENTS: Liver Length: 16.6 cm Gallbladder Wall: 0.2 cm CBD: 0.5 cm Right Kidney: 10.7 x 4.2 x 5.1 cm Body habitus and bowel gas limits exam Pancreas: unable to view due to bowel gas Liver: difficult to penetrate, intercostal imaging, appear wnl Gallbladder: fundal fold seen with no other abnormalities noted Evidence for sonographic Morrison's sign: no CBD: wnl Right Kidney: wnl The pancreas is obscured. The liver is normal in size but difficult to penetrate and may be fatty infiltrated. The gallbladder is normal without evidence cholelithiasis. Gallbladder wall measures 2 mm. The distal common hepatic duct measures 5 mm. The right kidney is unremarkable. IMPRESSION: LIMITED BUT OTHERWISE NORMAL RIGHT UPPER QUADRANT ULTRASOUND.
--- NOTE | 2019-05-10 09:44 | XR ---
EXAMINATION TYPE: XR chest 2V DATE OF EXAM: 05/10/2019 HISTORY: right lower rib pain. REFERENCE: Previous study dated 02/10/2017. FINDINGS: The lungs remain clear. Pleural spaces are clear. The heart is not enlarged. I do not see e vidence of pneumothorax. No displaced rib fracture is seen. IMPRESSION: NO ACTIVE INTRATHORACIC DISEASE.
[2019-05-10 09:51] VITALS: BP 110/77; PULSE 70
[2019-05-10] MEDS ORDERED: HYDROmorphone 0.5 MG/0.5 ML SYRINGE IVP STA (10:11)
[2019-05-10] MEDS ORDERED: ACET/COD 300 MG/30 MG STARTER PACK 6 TAB BTL PO STA (10:11)
[2019-05-10] MEDS ORDERED: ONDANSETRON 4 MG/2 ML VIAL IVP STA (10:11)
== END 2019-05-10 10:17 | disposition home or self-care (01) ==
LOC: EC 08:53
DX: M94.0 Chondrocostal junction syndrome [Tietze] (principal); R10.9 Unspecified abdominal pain; F17.200 Nicotine dependence, unspecified, uncomplicated; Z88.0 Allergy status to penicillin
CPT/HCPCS: 99284; 96374; 96375 ×2; 96361; 36415; 80053; 82150; 83690; 85025; 81001; 81025; 71046; 76705; J2405; J1885; J1170

== ENCOUNTER 2019-12-12 10:16 | Emergency (ER) | payer OTHER ==
[2019-12-12] MEDS ORDERED: SODIUM CHLORIDE 0.9% 1,000 ML IV STA (10:46)
[2019-12-12] MEDS ORDERED: ACETAMINOPHEN TAB 500 MG TAB PO STA (10:47)
--- NOTE | 2019-12-12 10:59 | ED ---
General Adult HPI - General Chief complaint: Abdominal Pain Stated complaint: 8wks preg, abd/back pain Time Seen by Provider: 12/12/19 10:30 Source: patient, RN notes reviewed Mode of arrival: ambulatory Limitations: no limitations - History of Present Illness Initial comments: 24-year-old female currently 8 weeks with a last menstrual period of October 14 presents to the emergency department for abdominal cramping. Patient reports that yesterday she started has some lower abdominal cramping. States she notices when she twisted getting out of the car. Patient reports that it persisted through this morning. She denies any vaginal bleeding. Patient did have an ultrasound 2 weeks ago that confirmed an intrauterine at the [facility]. Patient reports that she has an appointment coming up with an [employer] at the end of December.Patient has no other complaints at this time including shortness of breath, chest pain, abdominal pain, nausea or vomiting, headache, or visual changes. - Related Data Home Medications Medication Instructions Recorded Confirmed diphenhydrAMINE HCL [Benadryl] 25 mg PO Q6H PRN 09/19/17 05/10/19 Vitamin C/Biotin [Hair, Skin and 1 tab PO DAILY 05/10/19 05/10/19 Nails] Previous Rx's Medication Instructions Recorded Ibuprofen [Motrin] 600 mg PO Q8HR PRN #30 tab 05/10/19 Cephalexin [Keflex] 500 mg PO Q6H 10 Days #20 cap 12/12/19 Allergies Allergy/AdvReac Type Severity Reaction Status Date / Time amoxicillin AdvReac Nausea & Verified 12/12/19 10:21 Vomiting Review of Systems ROS Statement: Those systems with pertinent positive or pertinent negative responses have been documented in the HPI. ROS Other: All systems not noted in ROS Statement are negative. Past Medical History Past Medical History: No Reported History History of Any Multi-Drug Resistant Organisms: None Reported Past Surgical History: Section Additional Past Surgical History / Comment(s): extra toe removed at 10 month, reconstructive at 18 months Past Anesthesia/Blood Transfusion Reactions: No Reported Reaction Past Psychological History: Anxiety Smoking Status: Never smoker Past Alcohol Use History: None Reported Past Drug Use History: None Reported, Marijuana - Past Family History Mother Family Medical History: AFIB, Hypertension, Sleep Apnea/CPAP/BIPAP, Vascular Disorder General Exam Limitations: no limitations General appearance: alert, in no apparent distress Head exam: Present: atraumatic, normocephalic, normal inspection Eye exam: Present: normal appearance, PERRL, EOMI. Absent: scleral icterus, conjunctival injection, periorbital swelling ENT exam: Present: normal exam, mucous membranes moist Neck exam: Present: normal inspection, full ROM. Absent: tenderness, meningismus, lymphadenopathy Respiratory exam: Present: normal lung sounds bilaterally. Absent: respiratory distress, wheezes, rales, rhonchi, stridor Cardiovascular Exam: Present: regular rate, normal rhythm, normal heart sounds. Absent: systolic murmur, diastolic murmur, rubs, gallop, clicks GI/Abdominal exam: Present: soft, normal bowel sounds. Absent: distended, tenderness (No significant abdominal tenderness.), guarding, rebound, rigid Back exam: Absent: CVA tenderness (R), CVA tenderness (L) Course Vital Signs 12/12/19 12/12/19 12/12/19 10:21 12:17 12:56 Temperature 98.7 F 98.4 F Pulse Rate 89 67 Respiratory 18 16 16 Rate Blood Pressure 106/74 133/74 O2 Sat by Pulse 99 99 Oximetry Medical Decision Making - Medical Decision Making Vitals are stable. Patient is afebrile. HPI and physical exam as documented. again, no bleeding. CBC CMP unremarkable. Urinalysis does show evidence of infection with positive nitrates. Patient does not have any CVA tenderness. Patient was treated with Rocephin and Keflex are likely the cause of her cramping. Ultrasound shows a single live intrauterine however current ultrasound biometry a smaller discordant at 7 weeks. I did discuss with the patient. I discussed recommendation of short interval follow-up. Patient will call Dr. Ta her [employer] Saturday. - Lab Data Result diagrams: 12/12/19 11:02 12/12/19 11:02 Lab Results 12/12/19 12/12/19 12/12/19 Range/Units 11:02 11:02 11:02 WBC 7.9 (3.8-10.6) k/uL RBC 4.74 (3.80-5.40) m/uL Hgb 12.7 (11.4-16.0) gm/dL Hct 39.7 (34.0-46.0) % MCV 83.9 (80.0-100.0) fL MCH 26.8 (25.0-35.0) pg MCHC 32.0 (31.0-37.0) g/dL RDW 14.1 (11.5-15.5) % Plt Count 228 (150-450) k/uL Neutrophils % 72 % Lymphocytes % 18 % Monocytes % 4 % Eosinophils % 5 % Basophils % 1 % Neutrophils # 5.7 (1.3-7.7) k/uL Lymphocytes # 1.4 (1.0-4.8) k/uL Monocytes # 0.3 (0-1.0) k/uL Eosinophils # 0.4 (0-0.7) k/uL Basophils # 0.1 (0-0.2) k/uL Sodium 136 L (137-145) mmol/L Potassium 4.1 (3.5-5.1) mmol/L Chloride 107 (98-107) mmol/L Carbon Dioxide 22 (22-30) mmol/L Anion Gap 7 mmol/L BUN 8 (7-17) mg/dL Creatinine 0.55 (0.52-1.04) mg/dL Est GFR (CKD-EPI)AfAm >90 (>60 ml/min/1.73 sqM) Est GFR (CKD-EPI)NonAf >90 (>60 ml/min/1.73 sqM) Glucose 103 H (74-99) mg/dL Calcium 9.0 (8.4-10.2) mg/dL Total Bilirubin 0.5 (0.2-1.3) mg/dL AST 21 (14-36) U/L ALT 17 (4-34) U/L Alkaline Phosphatase 52 (38-126) U/L Total Protein 6.2 L (6.3-8.2) g/dL Albumin 3.6 (3.5-5.0) g/dL Amylase 31 (30-110) U/L Lipase 26 (23-300) U/L HCG, Quant 47753.3 mIU/mL Urine Color Yellow Urine Appearance Cloudy H (Clear) Urine pH 6.5 (5.0-8.0) Ur Specific [place] 1.026 (1.001-1.035) Urine Protein Trace H (Negative) Urine Glucose (UA) Negative (Negative) Urine Ketones Negative (Negative) Urine Blood Negative (Negative) Urine Nitrite Positive H (Negative) Urine Bilirubin Negative (Negative) Urine Urobilinogen <2.0 (<2.0) mg/dL Ur Leukocyte Esterase Moderate H (Negative) Urine WBC 34 H (0-5) /hpf Ur Squamous Epith Cells 12 H (0-4) /hpf Urine Bacteria Few H (None) /hpf Urine Mucus Many H (None) /hpf Disposition Clinical Impression: UTI (urinary tract infection), Abdominal pain during Disposition: HOME SELF-CARE Condition: Good Instructions (If sedation given, give patient instructions): Abdominal Pain in (ED), Urinary Tract Infection in (ED) Additional Instructions: please take Keflex as directed. take Tylenol as needed for pain and discomfort. Please follow-up with [employer] for UTI as well as possible abnormal ultrasound. Return to the emergency room for any worsening symptoms or bleeding. Prescriptions: Cephalexin [Keflex] 500 mg PO Q6H 10 Days #20 cap Is patient prescribed a controlled substance at d/c from ED?: No Referrals: Joya Harkins MD [Primary Care Provider] - 1-2 days Time of Disposition: 12:32
[2019-12-12 11:18] LABS: Basophils # (A) 0.1 k/uL (0-0.2); Basophils % (A) 1 %; Eosinophils # (A) 0.4 k/uL (0-0.7); Eosinophils % (A) 5 %; HCT 39.7 % (34.0-46.0); HGB 12.7 gm/dL (11.4-16.0); Lymphocytes # (A) 1.4 k/uL (1.0-4.8); Lymphocytes % (A) 18 %; MCH 26.8 pg (25.0-35.0); MCV 83.9 fL (80.0-100.0); Monocytes # (A) 0.3 k/uL (0-1.0); Monocytes % (A) 4 %; Neutrophils # (A) 5.7 k/uL (1.3-7.7); Neutrophils % (A) 72 %; Platelet Count 228 k/uL (150-450); RBC 4.74 m/uL (3.80-5.40); RDW 14.1 % (11.5-15.5); WBC 7.9 k/uL (3.8-10.6)
[2019-12-12 11:24] LABS: ALT 17 U/L (4-34); AST 21 U/L (14-36); African American GFR (CKD) >90 (>60 ml/min/1.73 sqM); Albumin 3.6 g/dL (3.5-5.0); Alkaline Phosphatase 52 U/L (38-126); Amylase 31 U/L (30-110); Anion Gap 7 mmol/L; Blood Urea Nitrogen 8 mg/dL (7-17); Carbon Dioxide 22 mmol/L (22-30); Chloride 107 mmol/L (98-107); Glucose 103 mg/dL (74-99); Non-African American GFR(CKD) >90 (>60 ml/min/1.73 sqM); Potassium 4.1 mmol/L (3.5-5.1); Sodium 136 mmol/L (137-145); Total Bilirubin 0.5 mg/dL (0.2-1.3); Total Protein 6.2 g/dL (6.3-8.2)
[2019-12-12 11:29] LABS: Appearance,Urine Cloudy (Clear); Bacteria,Urine Few /hpf; Bilirubin,Urine Negative (Negative); Blood,Urine Negative (Negative); Color,Urine Yellow; Glucose,Urine (UA) Negative (Negative); Ketones,Urine Negative (Negative); Leukocyte Esterase,Urine Moderate (Negative); Mucus,Urine Many /hpf; Nitrite,Urine Positive (Negative); PH, Urine 6.5 (5.0-8.0); Protein,Urine Trace (Negative); Specific Gravity,Urine 1.026 (1.001-1.035); Squamous Epithelial Cell,Urine 12 /hpf (0-4); Urobilinogen,Urine <2.0 mg/dL (<2.0); WBC,Urine 34 /hpf (0-5)
--- NOTE | 2019-12-12 11:49 | US ---
EXAMINATION TYPE: Ultrasound OB <= 14 week fetus DATE OF EXAM: 12/12/2019 11:36 AM COMPARISON: NONE CLINICAL HISTORY: 24-year-old female pain. EXAM PERFORMED: Transabdominal (TA) FINDINGS: EXAM MEASUREMENTS: GESTATIONAL AGE / DATING Physician Established: Not yet established Dates by LMP: (8 weeks/2 days) EDC: 07/21/20 Dates by First Scan: No previous this is first scan Dates by Current Scan for: (7 weeks/0 days +/- 4 days) EDC: 07/31/19 MATERNAL ANATOMY Uterus: 8.7 x 6. 2 x 7.9cm Right Ovary: 3.6 x 1.8 x 1.6cm Left Ovary: 2.9 x 1.7 x 1.5cm Post CDS / Adnexa: wnl Presence of free fluid: no GESTATION / SURVEY CRL: 1.0cm (7 weeks/0 days) MSD: 2.0cm ( 6 weeks/4 days) Yolk Sac (normal less than 6mm): 2mm Heart Rate: 170 bpm Rhythm: Normal IUP: Viable IUP Date of LMP: 10/15/19 Beta HcG (if available): Not available at this time Product Line Manager notes: Viable IUP measuring 7 weeks 0 days. IMPRESSION: 1. Single live intrauterine with estimated gestational age of 8 weeks 2 days by LMP. Curren t ultrasound biometry is smaller and discordant at 7 weeks 0 days. Correlate with accuracy of recall of LMP. 2. Given discordance, consider short interval follow-up to assess for appropriate growth. 3. Additionally, complete survey recommended at 18-20 weeks.
[2019-12-12 12:06] LABS: HCG,Quantitative Serum 69681.3 mIU/mL
[2019-12-12 12:18] VITALS: RESP 16
[2019-12-12] MEDS ORDERED: cefTRIAXone IN SWFI 1,000 MG/10 ML SYRINGE IVP STA (12:32)
[2019-12-12 12:57] VITALS: BP 133/74; PULSE 67; TEMP 98.4
== END 2019-12-12 12:55 | disposition home or self-care (01) ==
LOC: EC 10:16
DX: O23.41 Unspecified infection of urinary tract in pregnancy, first trimester (principal); Z88.0 Allergy status to penicillin; Z3A.01 Less than 8 weeks gestation of pregnancy
CPT/HCPCS: 36415; 80053; 82150; 83690; 85025; 81001; 84702; 87491; 87591; 87086; 76801; 99284; 96374; 96361; J0696

== ENCOUNTER → 2019-12-24 | Outpatient (CLI) | payer OTHER ==
--- NOTE | 2019-12-24 15:01 | US ---
EXAMINATION TYPE: Transabdominal DATE OF EXAM: 12/24/2019 1:42 PM COMPARISON: US 12/12/19 CLINICAL HISTORY: Z36 F/U Prev abn ultrasound. EXAM PERFORMED: Transvaginal (TV) and Transabdominal (TA) EXAM MEASUREMENTS: GESTATIONAL AGE / DATING Physician Established: Not yet established Dates by LMP: (10 weeks/0 days) EDC: 07/21/20 Dates by First Scan: (7 weeks/0 days) EDC: 07/30/20 Dates by Current Scan for: (9 weeks/5 days) EDC: 07/23/20 MATERNAL ANATOMY Uterus: 12.4 x 4.9 x 9.7; Nabothian cysts Right Ovary: 2.8 x 2.1 x 1.9 Left Ovary: 2.2 x 1.8 cm; limited visualization Post CDS / Adnexa: WNL Presence of free fluid: No Presence of corpus luteal cyst: yes, Rt ov 2.0 x 1.9 x 1.6 cm Presence of subchorionic bleed: yes, 2.8 x 0.9 x 2.3 cm GESTATION / SURVEY CRL: 3.2 (10 weeks/1 days) MSD: 3.7 (9 weeks/1 days) Yolk Sac (normal less than 6mm): 0.4 Heart Rate: 176 bpm Rhythm: Normal IUP: Viable IUP Date of LMP: 10/15/19 Beta HcG (if available): Not available at this time IMPRESSION: Single viable intrauterine .
== END | disposition home or self-care (01) ==
LOC: RADUSWWP 12:45
PROVIDERS: ATTEND Obstetrics & Gynecology
DX: Z36.89 Encounter for other specified antenatal screening (principal); Z3A.09 9 weeks gestation of pregnancy
CPT/HCPCS: 76801; 76817

== ENCOUNTER 2020-06-10 17:03 | Outpatient (CLI) | payer OTHER ==
[2020-06-10 17:56] LABS: Appearance,Urine Clear (Clear); Bilirubin,Urine Negative (Negative); Blood,Urine Negative (Negative); Color,Urine Yellow; Glucose,Urine (UA) 2+ (Negative); Ketones,Urine Trace (Negative); Leukocyte Esterase,Urine Negative (Negative); Mucus,Urine Occasional /hpf; Nitrite,Urine Negative (Negative); Protein,Urine 1+ (Negative); RBC,Urine 4 /hpf (0-5); Squamous Epithelial Cell,Urine 4 /hpf (0-4); Urobilinogen,Urine <2.0 mg/dL (<2.0); WBC,Urine 3 /hpf (0-5)
[2020-06-10 18:31] VITALS: BP 123/83; PULSE 97; RESP 16; TEMP 97.3
--- NOTE | 2020-06-13 06:50 | P.MSEPDOC ---
Presenting Problems - Arrival Data Date of Arrival on Unit: 06/10/20 Time of Arrival on Unit: 17:03 Mode of Transport: Ambulatory - Complaint OB-Reason for Admission/Chief Complaint: Pain Medical History - Information : 2 Para: 1 Number of Living Children: 1 - Gestational Age Gestational Age by STEFANY (wks/days): 33 Weeks and 6 Days - History Complications: Prior Review of Systems - Review of Systems Constitutional: No problems Breast: No problems ENT: No problems Cardiovascular: No problems Respiratory: No problems Gastrointestinal: No problems Genitourinary: No problems Musculoskeletal: No problems Neurological: No problems Skin: No problems Vital Signs - Temperature Temperature: 97.3 F Temperature Source: Temporal Artery Scan - Pulse Right Sitting Brachial Pulse Rate: 97 Pulse Assessment Method: Automatic Cuff - Respirations Respiratory Rate: 16 Oxygen Delivery Method: Room Air O2 Sat by Pulse Oximetry: 97 - Blood Pressure Right Arm Sitting Blood Pressure: 123/83 Blood Pressure Mean: 96 Blood Pressure Source: Automatic Cuff Medical Screen Scoring (Pre) - Cervical Exam Dilation: 0 cm = 0 Effacement: Exam Deferred Membranes: Intact - Uterine Contractions Frequency: N/A Duration: N/A Intensity: N/A - Maternal Vital Signs Maternal Temperature: N/A Maternal Blood Pressure: N/A Signs of Preeclampsia: N/A Maternal Respirations: N/A - Maternal Trauma Maternal Trauma: N/A - Assessment - Baby A Baseline FHR: 140 Heart Rate - NICHD Category: Category I (Normal) = 0 NST: Reactive Position: N/A Station: N/A - Total Score - Baby A Total Score - Baby A: 0 - Total Score - Baby B Total Score - Baby B: 0 - Total Score - Baby C Total Score - Baby C: 0 - Level of Risk - Baby A Level of Risk - Baby A: Low (0-5) - Level of Risk - Baby B Level of Risk - Baby B: Low (0-5) - Level of Risk - Baby C Level of Risk - Baby C: Low (0-5) Physician Notification (Pre) - Physician Notified Physician Notified Date: 06/10/20 Physician Notified Time: 17:30 New Order Received: Yes (ua, discharge home) Disposition - Disposition OB Disposition: Discharge to home Discharge Date: 06/10/20 Discharge Time: 18:22 I agree with the RN Medical Screening Exam: Yes Case reviewed; plan agreed upon as documented in EMR&OBIX.: Yes Diagnosis: LOW BACK PAIN
== END 2020-06-10 18:22 | disposition home or self-care (01) ==
LOC: FBPOP 17:03
PROVIDERS: ATTEND Obstetrics & Gynecology
DX: O99.891 Other specified diseases and conditions complicating pregnancy (principal); M54.5 Low back pain; Z3A.33 33 weeks gestation of pregnancy
CPT/HCPCS: 59025; 81001; G0463; 99213

== ENCOUNTER 2020-07-24 15:53 | Outpatient (CLI) | payer OTHER ==
[2020-07-24 17:20] VITALS: BP 135/67; PULSE 109; RESP 18; TEMP 97.9
--- NOTE | 2020-07-25 06:25 | P.MSEPDOC ---
Presenting Problems - Arrival Data Date of Arrival on Unit: 07/24/20 Time of Arrival on Unit: 15:53 Mode of Transport: Ambulatory - Complaint OB-Reason for Admission/Chief Complaint: Possible Onset of Labor Comment: contractions since last night that are closer today, 7 min apart last night, pt states 5 min apart now. Medical History - Information : 2 Para: 1 Term: 1 : 0 Abortions: Spontaneous or Elective: 0 Number of Living Children: 1 - Gestational Age Gestational Age by STEFANY (wks/days): 39 Weeks and 1 Days - History Complications: GBS+, Prior Review of Systems - Review of Systems Constitutional: No problems Breast: No problems ENT: No problems Cardiovascular: No problems Respiratory: No problems Gastrointestinal: No problems Genitourinary: No problems Musculoskeletal: No problems Neurological: No problems Skin: No problems Vital Signs - Temperature Temperature: 97.9 F Temperature Source: Temporal Artery Scan - Pulse Right Pulse Oximetery Pulse Rate: 109 Pulse Assessment Method: Pulse Oximetry - Respirations Respiratory Rate: 18 Oxygen Delivery Method: Room Air O2 Sat by Pulse Oximetry: 98 - Blood Pressure Right Arm Blood Pressure: 135/67 Blood Pressure Mean: 89 Blood Pressure Source: Automatic Cuff Medical Screen Scoring (Pre) - Cervical Exam Dilation: 1-3 cm = 1 Membranes: Intact - Uterine Contractions Frequency: > 5 minutes apart = 1 Duration: > 40 seconds = 2 Intensity: N/A - Maternal Vital Signs Maternal Temperature: N/A Maternal Blood Pressure: N/A Signs of Preeclampsia: N/A Maternal Respirations: N/A - Maternal Trauma Maternal Trauma: N/A - Assessment - Baby A Baseline FHR: 140 Heart Rate - NICHD Category: Category I (Normal) = 0 NST: Reactive Position: N/A Station: N/A - Total Score - Baby A Total Score - Baby A: 4 - Total Score - Baby B Total Score - Baby B: 4 - Total Score - Baby C Total Score - Baby C: 4 - Level of Risk - Baby A Level of Risk - Baby A: Low (0-5) - Level of Risk - Baby B Level of Risk - Baby B: Low (0-5) - Level of Risk - Baby C Level of Risk - Baby C: Low (0-5) Physician Notification (Pre) - Physician Notified Physician Notified Date: 07/24/20 Physician Notified Time: 16:33 New Order Received: Yes (recheck cervix after one hour and discharge home if no cervical change.) Disposition - Disposition OB Disposition: Discharge to home Discharge Date: 07/24/20 Discharge Time: 17:10 I agree with the RN Medical Screening Exam: Yes Case reviewed; plan agreed upon as documented in EMR&OBIX.: Yes Diagnosis: FALSE LABOR AT OR AFTER 37 COMPLETED WEEKS OF GESTATION
== END 2020-07-24 17:10 | disposition home or self-care (01) ==
LOC: FBPOP 15:53
PROVIDERS: ATTEND Obstetrics & Gynecology
DX: O47.1 False labor at or after 37 completed weeks of gestation (principal); Z3A.39 39 weeks gestation of pregnancy
CPT/HCPCS: 59025; G0463; 99213

== ENCOUNTER 2020-07-25 06:13 | Inpatient (IN) | payer OTHER ==
[2020-07-25] MEDS ORDERED: CITRIC ACID-SODIUM CITRATE 15 ML CUP PO ONE (06:32)
[2020-07-25 07:04] LABS: Basophils % (A) 0 %; Eosinophils # (A) 0.1 k/uL (0-0.7); Eosinophils % (A) 1 %; HCT 35.8 % (34.0-46.0); HGB 11.7 gm/dL (11.4-16.0); Lymphocytes # (A) 0.7 k/uL (1.0-4.8); Lymphocytes % (A) 7 %; MCH 25.9 pg (25.0-35.0); MCHC 32.7 g/dL (31.0-37.0); MCV 79.2 fL (80.0-100.0); Mean Platelet Volume 8.4; Monocytes # (A) 0.5 k/uL (0-1.0); Monocytes % (A) 6 %; Neutrophils % (A) 85 %; Platelet Count 268 k/uL (150-450); RBC 4.52 m/uL (3.80-5.40); RDW 15.5 % (11.5-15.5); WBC 9.4 k/uL (3.8-10.6)
[2020-07-25] MEDS ORDERED: CLINDAMYCIN 900 MG in DEXTROSE 5% IN WATER 50 ML IVPB STA ×2 (07:18)
[2020-07-25] MEDS: LACTATED RINGERS 1,000 ML IV SCH ×4 (07:36→19:40)
[2020-07-25] MEDS ORDERED: CELLULOSE,OXIDIZED 1 EACH EACH MISCELLANE ONE (08:00)
[2020-07-25] MEDS ORDERED: MORPHINE SULFATE (PF) 0.3 MG/0.3 ML SYR ONE (08:00)
[2020-07-25] MEDS ORDERED: ONDANSETRON 4 MG/2 ML VIAL ONE (08:00)
[2020-07-25] MEDS ORDERED: KETOROLAC 15 MG/ML 1 ML VIAL ONE (08:00)
[2020-07-25] MEDS ORDERED: OXYTOCIN 10 UNIT/ML 1 ML VIAL ONE (08:00)
[2020-07-25] MEDS ORDERED: NALBUPHINE 10 MG/ML (1 ML AMP) ONE (08:00)
[2020-07-25] MEDS ORDERED: ONDANSETRON 4 MG/2 ML VIAL IVP PRN (08:46)
[2020-07-25] MEDS ORDERED: diphenhydrAMINE 25 MG CAP PO PRN (08:46)
[2020-07-25] MEDS ORDERED: METOCLOPRAMIDE 5 MG/ML 2 ML VIAL IVP PRN (08:46)
[2020-07-25] MEDS ORDERED: ZOLPIDEM 5 MG TAB PO PRN (08:46)
[2020-07-25] MEDS ORDERED: diphenhydrAMINE 50 MG/ML 1 ML VIAL IVP PRN ×2 (08:46)
[2020-07-25] MEDS ORDERED: NALOXONE 0.4 MG/ML 1 ML VIAL IV PRN (08:46)
[2020-07-25] MEDS ORDERED: diphenhydrAMINE 50 MG CAP PO PRN (08:46)
--- NOTE | 2020-07-25 08:48 | P.HPOB ---
History of Present Illness H&P Date: 07/25/20 Chief Complaint: Intrauterine at term: Prior section Ania is a 25-year-old with prior section with history of macrosomia. She is scheduled for repeat low transverse section. Risks/benefits/alternatives to this procedure were discussed with patient in detail and all questions were answered for her prior to proceeding to the o perative room. Her course had otherwise been generally unremarkable and she is feeling well at this time. Vital signs are stable and afebrile. Category 1 tracing is noted. Past Medical History Past Medical History: No Reported History History of Any Multi-Drug Resistant Organisms: None Reported Past Surgical History: Section Additional Past Surgical History / Comment(s): extra toe removed at 10 month, reconstructive at 18 months Past Anesthesia/Blood Transfusion Reactions: No Reported Reaction Past Psychological History: Anxiety Smoking Status: Former smoker Past Alcohol Use History: None Reported Past Drug Use History: Marijuana Additional Drug Use History / Comment(s): Pt states she used marijuanna until half way through and still "hits it" every now and then. - Past Family History Mother Family Medical History: Congestive Heart Failure (CHF), COPD, Hypertension Medications and Allergies Home Medications Medication Instructions Recorded Confirmed Type diphenhydrAMINE HCL [Benadryl] 25 mg PO Q6H PRN 09/19/17 07/25/20 History Acetaminophen Tab [Tylenol Tab] 1,000 mg PO Q6HR PRN 06/10/20 07/25/20 History Pnv No.95/Ferrous Fum/Folic AC 1 each PO 07/25/20 History [ Multivitamin Tablet] Allergies Allergy/AdvReac Type Severity Reaction Status Date / Time amoxicillin AdvReac Nausea & Verified 07/25/20 06:29 Vomiting Exam Osteopathic Statement: *. No significant issues noted on an osteopathic structural exam other than those noted in the History and Physical/Consult. Vital Signs Temp Pulse Resp BP Pulse Ox 07/25/20 06:28 98.2 F 117 H 16 135/74 97 Intake and Output 07/24/20 07/25/20 07/25/20 22:59 06:59 14:59 Other: Weight 141.521 kg - OBG Physical Exam Breast: both: normal (no masses) Abdomen: Obese Abdomen: bowel sounds normal, no diffuse tenderness, no bruit present, no guarding noted, no hepatomegaly, no splenomegaly, no mass Vulva: both: normal Vagina: normal moisture, no discharge Cervix: no lesion, no discharge Uterus: normal size, normal contour Adnexa: both: normal Anus/Rectum: normal perianal skin, no rectal mass, no hemorrhoids, heme negative Results Result Diagrams: 07/25/20 06:42 Abnormal Lab Results - Last 24 Hours (Table) 07/25/20 Range/Units 06:42 MCV 79.2 L (80.0-100.0) fL Neutrophils # 8.0 H (1.3-7.7) k/uL Lymphocytes # 0.7 L (1.0-4.8) k/uL
--- NOTE | 2020-07-25 08:52 | P.OP ---
Date of Procedure: 07/25/20 Preoperative Diagnosis: Intrauterine term: Macrosomia: Prior section Postoperative Diagnosis: Same Procedure(s) Performed: Repeat low transverse section Anesthesia: spinal Surgeon: Darwin Frazier Assistant Manager Pt #1: Taisha Boyer Estimated Blood Loss (ml): 660 IV fluids (ml): 1,000 Urine output (ml): 50 Pathology: none sent Condition: stable Disposition: floor Operative Findings: Male scores of 5, 9 and 9 at one, 5 and 10 minutes respectively. Thin meconium is noted at the time of artificial rupture membranes. Weight was 10 lbs. 2 oz. Description of Procedure: Patient was taken to the operating suite where a spinal anesthetic was found be adequate. She was prepped and draped in normal sterile fashion and placed in the dorsal supine position with leftward tilt. Initially a Pfannenstiel skin incision was made this incision was then carried through to the underlying layer of the fashion with the second knife. Fascia was then nicked in the midline and this opening was extended laterally with Tam scissors. Superior and inferior aspect of this incision were then grasped tented up and bluntly and sharply dissected off the rectus muscles. Rectus muscles were then divided midline and blunt dissection the peritoneum was performed. This opening was then extended superiorly and inferiorly with good visualization of both bowel bladder. Large amount of omentum was noted scarred to the anterior uterine surface. Piece was grasped elevated and doubly clamped between hemostats and transected to allow for us to be able to access the uterus. 0 Vicryl suture was used to obtain hemostasis along these edges. Once this was completed knife was used to incise uterus this opening was fully developed a hemostat. It was then extended bluntly. Head was then H medically delivered and thin meconium was noted throughout the fluid. Once head was elevated into the incision mouth nares were then bulb suctioned and the remainder the baby was then delivered gentle traction. Once baby was fully delivered umbilical cord was clamped cut usual fashion an nursery personnel was present to assume care. Placenta was then delivered intact and Pitocin was added to the IV. Uterus was then exteriorized cleared of clots and debris and closed in 2 layers with 0 Vicryl suture. Once excellent hemostasis was obtained blood and debris was suctioned from the posterior cul-de-sac and uterus was reinserted into the abdomen. Piece of Surgicel was then placed over the incision line to try and protect for further scarring. Peritoneal layer was then reapproximated with 0 Vicryl suture. Fascial layer was then closed with 0 Vicryl suture. One layer of 3-0 Vicryl placed in deep subcuticular tissues to reapproximate skin and close that space. Skin was then closed with 3-0 Vicryl subcuticularly. Sponge, lap, needle counts were all correct 2. Patient was then taken to the recovery room in stable and satisfactory condition.
[2020-07-25] MEDS ORDERED: OXYTOCIN 30 UNITS/500 ML NS 30 UNIT in SALINE 1 500ML.BAG IV SCH (12:45)
[2020-07-25] MEDS: KETOROLAC 15 MG/ML 1 ML VIAL IVP SCH ×2 (15:41→20:59)
[2020-07-25] MEDS: SENNOSIDES-DOCUSATE SODIUM 1 EACH TAB PO SCH (20:59)
[2020-07-26] MEDS: KETOROLAC 15 MG/ML 1 ML VIAL IVP SCH ×3 (03:55→18:32)
[2020-07-26 07:29] LABS: Basophils % (A) 1 %; Eosinophils # (A) 0.1 k/uL (0-0.7); Eosinophils % (A) 1 %; HCT 24.4 % (34.0-46.0); Lymphocytes # (A) 1.2 k/uL (1.0-4.8); Lymphocytes % (A) 15 %; MCH 25.9 pg (25.0-35.0); MCHC 32.1 g/dL (31.0-37.0); MCV 80.8 fL (80.0-100.0); Mean Platelet Volume 8.3; Monocytes # (A) 0.7 k/uL (0-1.0); Monocytes % (A) 9 %; Neutrophils # (A) 5.7 k/uL (1.3-7.7); Neutrophils % (A) 73 %; Platelet Count 212 k/uL (150-450); RBC 3.02 m/uL (3.80-5.40); RDW 15.8 % (11.5-15.5); WBC 7.8 k/uL (3.8-10.6)
[2020-07-26 07:45] LABS: HGB 7.8 gm/dL (11.4-16.0)
--- NOTE | 2020-07-26 08:56 | P.PNOBGPC ---
Subjective - Subjective Principal diagnosis: Post op day 1 Interval history: Ania is doing very well postop day 1. She is ambulating, voiding and tolerating her diet. She voices no complaints. Vital signs are stable and afebrile. Heart regular, lungs clear, extremities without pain. Abdomen is soft and her incision is intact. Bowel sounds are noted. Patient reports: Reports appetite normal, Reports voiding normally, Reports pain well controlled, Reports ambulating normally : doing well Objective - Vital Signs Latest vital signs: Vital Signs Temp Pulse Pulse Resp BP BP Pulse Ox 07/26/20 07:34 98.7 F 104 H 16 103/68 95 07/26/20 04:00 98.1 F 80 17 114/74 98 07/25/20 23:26 98.9 F 91 18 113/73 97 07/25/20 20:00 98.1 F 90 18 108/71 100 07/25/20 16:00 98.7 F 92 18 115/70 97 07/25/20 11:20 74 16 124/72 07/25/20 10:55 78 18 126/75 07/25/20 10:25 73 18 129/77 97 07/25/20 09:55 98.1 F 82 18 109/62 97 07/25/20 09:40 81 18 115/65 97 07/25/20 09:25 97.7 F 88 18 109/51 97 07/25/20 09:10 89 16 116/54 98 Intake and Output 07/25/20 07/26/20 07/26/20 22:59 06:59 14:59 Intake Total 100 Balance 100 Intake: IV 100 Other: # Voids 1 - Exam Lungs: bilateral: normal Chest: Normal S1, Normal S2 Extremities: Present: normal Abdomen: Present: normal appearance, soft. Absent: distention, tenderness Incision: Present: normal, dry, intact Uterus: Present: normal, firm - Labs Labs: Abnormal Lab Results - Last 24 Hours (Table) 07/26/20 Range/Units 06:50 RBC 3.02 L (3.80-5.40) m/uL Hgb 7.8 L D (11.4-16.0) gm/dL Hct 24.4 L (34.0-46.0) % RDW 15.8 H (11.5-15.5) %
[2020-07-26] MEDS: SENNOSIDES-DOCUSATE SODIUM 1 EACH TAB PO SCH ×2 (10:16→19:48)
[2020-07-26] MEDS: ACETAMINOPHEN TAB 500 MG TAB PO SCH ×2 (13:49→19:27)
[2020-07-26] MEDS: HYDROmorphone 2 MG TAB PO PRN ×2 (18:12→22:15)
[2020-07-26] MEDS: IBUPROFEN 600 MG TAB PO SCH ×2 (18:31→21:25)
[2020-07-27 00:34] VITALS: RESP 14
[2020-07-27] MEDS: ACETAMINOPHEN TAB 500 MG TAB PO SCH ×2 (01:51→06:33)
[2020-07-27] MEDS ORDERED: HYDROcodone/APAP 5-325MG 1 EACH TAB PO PRN (03:10)
[2020-07-27] MEDS: HYDROcodone/APAP 5-325MG 1 EACH TAB PO PRN ×2 (03:19→08:51)
[2020-07-27] MEDS: IBUPROFEN 600 MG TAB PO SCH ×2 (05:55→11:58)
[2020-07-27 08:15] VITALS: BP 119/81; PULSE 95; TEMP 98.2
[2020-07-27] MEDS ORDERED: ACETAMINOPHEN TAB 500 MG TAB PO SCH (08:15)
[2020-07-27] MEDS: SENNOSIDES-DOCUSATE SODIUM 1 EACH TAB PO SCH (08:53)
--- NOTE | 2020-07-27 09:37 | P.DS ---
Providers Date of admission: 07/25/20 06:13 Expected date of discharge: 07/27/20 Attending physician: Darwin Frazier Primary care physician: Stated None Hospital Course: Ania is doing very well postop day 2. She is ambulating, she is voiding, and she is tolerating her diet. She voices no complaints. Her pain is much better this morning. She is requesting discharge home today. Her vital signs are stable and she is afebrile. Heart regular, lungs clear, extremities are without pain. Abdomen soft uterus is firm. Her incision site is clean dry and intact. The silver dressing did fall off yesterday during removal of her top dr julio. Steri-Strips are however in place. All questions are answered for her prior to discharge. She'll follow me in 1 week and discharge instruction otherwise have been thoroughly reviewed. Prescription for Motrin and [place] was 40 to the pharmacy. Patient Condition at Discharge: Good Plan - Discharge Summary New Discharge Prescriptions: New Ibuprofen [Motrin] 600 mg PO Q6HR PRN #30 tab PRN Reason: Pain HYDROcodone/APAP 5-325MG [[place] 5-325] 1 tab PO Q4HR PRN #30 tab PRN Reason: Pain No Action diphenhydrAMINE HCL [Benadryl] 25 mg PO Q6H PRN PRN Reason: Cold Symptoms Acetaminophen Tab [Tylenol Tab] 1,000 mg PO Q6HR PRN PRN Reason: Pain Pnv No.95/Ferrous Fum/Folic AC [ Multivitamin Tablet] 1 each PO Discharge Medication List diphenhydrAMINE HCL [Benadryl] 25 mg PO Q6H PRN 09/19/17 [History] Acetaminophen Tab [Tylenol Tab] 1,000 mg PO Q6HR PRN 06/10/20 [History] Pnv No.95/Ferrous Fum/Folic AC [ Multivitamin Tablet] 1 each PO 07/25/20 [History] HYDROcodone/APAP 5-325MG [[place] 5-325] 1 tab PO Q4HR PRN #30 tab 07/27/20 [Rx] Ibuprofen [Motrin] 600 mg PO Q6HR PRN #30 tab 07/27/20 [Rx] Follow up Appointment(s)/Referral(s): Darwin Frazier DO [Doctor of Osteopathic Medicine] - 1 Week Activity/Diet/Wound Care/Special Instructions: No heavy lifting, limit stairs and driving, and pelvic rest. If any high temperatures, heavy bleeding, or severe pain call my office Discharge Disposition: HOME SELF-CARE
== END 2020-07-27 11:45 | disposition home or self-care (01) | DRG 788 ==
LOC: 4FBP 06:13
PROVIDERS: ADMIT Obstetrics & Gynecology; ATTEND Obstetrics & Gynecology
PROC: 10D00Z1 Extraction of Products of Conception, Low, Open Approach (ICD-10-PCS; principal; 2020-07-25 08:00)
PROC: 10907ZC Drainage of Amniotic Fluid, Therapeutic from Products of Conception, Via Natural or Artificial Opening (ICD-10-PCS; principal; 2020-07-25 08:00)
DX: O34.211 Maternal care for low transverse scar from previous cesarean delivery (principal); O36.63X0 Maternal care for excessive fetal growth, third trimester, not applicable or unspecified; Z3A.39 39 weeks gestation of pregnancy; Z37.0 Single live birth; Z87.891 Personal history of nicotine dependence; Z82.49 Family history of ischemic heart disease and other diseases of the circulatory system; Z83.6 Family history of other diseases of the respiratory system; Z86.59 Personal history of other mental and behavioral disorders; Z88.0 Allergy status to penicillin; Z79.899 Other long term (current) drug therapy; O77.0 Labor and delivery complicated by meconium in amniotic fluid
CPT/HCPCS: 59025; 85025; 86850; 86900; 86901; 99213

== ENCOUNTER 2020-07-28 05:31 | Emergency (ER) | payer OTHER ==
[2020-07-28 05:40] VITALS: TEMP 98.4
--- NOTE | 2020-07-28 05:57 | ED ---
General Adult HPI - General Chief complaint: Upper Respiratory Infection Stated complaint: ENT Time Seen by Provider: 07/28/20 05:42 Source: patient, family, RN notes reviewed Mode of arrival: ambulatory Limitations: no limitations - History of Present Illness Initial comments: Patient is a pleasant 25-year-old female presenting to the emergency Department with complaints of loss of voice. Onset of symptoms was a few days ago. Symptoms have slowly progressed. Asians is still able to talk however is not as loud and seems to bother her. Patient does have some scratchiness of her throat as well. Patient does have some nasal congestion. Patient has been coughing with occasional sputum. Noncolored. Mother states patient seemed to have chest congestion however patient denies this. Patient did just have recent delivery of baby a few days ago. Patient was not intubated. - Related Data Home Medications Medication Instructions Recorded Confirmed diphenhydrAMINE HCL [Benadryl] 25 mg PO Q6H PRN 09/19/17 07/25/20 Acetaminophen Tab [Tylenol Tab] 1,000 mg PO Q6HR PRN 06/10/20 07/25/20 Pnv No.95/Ferrous Fum/Folic AC 1 each PO 07/25/20 [ Multivitamin Tablet] Previous Rx's Medication Instructions Recorded HYDROcodone/APAP 5-325MG [[place] 1 tab PO Q4HR PRN #30 tab 07/27/20 5-325] Ibuprofen [Motrin] 600 mg PO Q6HR PRN #30 tab 07/27/20 Allergies Allergy/AdvReac Type Severity Reaction Status Date / Time amoxicillin AdvReac Nausea & Verified 07/28/20 05:40 Vomiting Review of Systems ROS Statement: Those systems with pertinent positive or pertinent negative responses have been documented in the HPI. ROS Other: All systems not noted in ROS Statement are negative. Constitutional: Denies: fever Eyes: Denies: eye pain ENT: Reports: as per HPI, throat pain, congestion. Denies: ear pain Respiratory: Reports: cough. Denies: dyspnea Cardiovascular: Denies: chest pain Endocrine: Denies: fatigue Gastrointestinal: Denies: abdominal pain Genitourinary: Denies: dysuria Musculoskeletal: Denies: back pain Skin: Denies: rash Neurological: Denies: weakness Past Medical History Past Medical History: No Reported History History of Any Multi-Drug Resistant Organisms: None Reported Past Surgical History: Section Additional Past Surgical History / Comment(s): extra toe removed at 10 month, reconstructive at 18 months Past Anesthesia/Blood Transfusion Reactions: No Reported Reaction Past Psychological History: Anxiety Smoking Status: Former smoker Past Alcohol Use History: None Reported Past Drug Use History: Marijuana - Past Family History Mother Family Medical History: Congestive Heart Failure (CHF), COPD, Hypertension General Exam Limitations: no limitations General appearance: alert, in no apparent distress, other (There is a mild hoarseness to the voice) Head exam: Present: atraumatic Eye exam: Present: normal appearance ENT exam: Present: normal oropharynx Neck exam: Present: normal inspection. Absent: tenderness, lymphadenopathy Respiratory exam: Present: normal lung sounds bilaterally Cardiovascular Exam: Present: regular rate, normal rhythm GI/Abdominal exam: Present: soft. Absent: distended, tenderness Extremities exam: Present: normal inspection Neurological exam: Present: alert Psychiatric exam: Present: normal affect, normal mood Skin exam: Present: normal color Course Vital Signs 07/28/20 07/28/20 05:35 06:31 Temperature 98.4 F Pulse Rate 111 H 98 Respiratory 20 18 Rate Blood Pressure 142/94 136/84 O2 Sat by Pulse 99 98 Oximetry Medical Decision Making - Medical Decision Making Patient reevaluated. Patient and family updated. Patient updated on need to quarantine. Resting blood pressure improved. Patient and family also updated and need to follow-up with borderline blood pressure. Patient was offered monoclonal antibodies however refuses. - Lab Data Lab Results 07/28/20 07/28/20 Range/Units 06:07 06:07 Coronavirus (PCR) Detected A (Not Detectd) Group A Strep Rapid Negative (Negative) - Radiology Data Radiology results: image reviewed (Chest x-ray shows no acute process) Disposition Clinical Impression: COVID-19 Disposition: HOME SELF-CARE Condition: Stable Instructions (If sedation given, give patient instructions): Upper Respiratory Infection (ED) Additional Instructions: Please court and your self for 10 days following onset of symptoms and 24 hours fever free. [id number] vitamin C, vitamin D, and zinc. Please do follow- up with your primary care physician in the next day or 2 for recheck. Please also follow-up with your BOOTH CASHIER in the next day for recheck. He should keep an eye on her blood pressure as well has this was borderline. Return for difficulty in breathing, swelling, headaches, vomiting, worsening symptoms or other concerns including uncontrolled fever. Is patient prescribed a controlled substance at d/c from ED?: No Referrals: Darwin Frazier DO [Doctor of Osteopathic Medicine] - 1-2 days Carmen Hudson MD [STAFF PHYSICIAN] - 1-2 days Time of Disposition: 06:46
[2020-07-28 06:31] VITALS: BP 136/84; PULSE 98; RESP 18
--- NOTE | 2020-07-28 06:42 | XR ---
EXAM: XR Chest, 2 Views CLINICAL HISTORY: ITS.REASON XR Reason: congestion TECHNIQUE: Frontal and lateral views of the chest. COMPARISON: 05/10/2019 FINDINGS: Lungs: Unremarkable. No consolidation. Pleural space: Unremarkable. No pneumothorax. Heart: Unremarkable. No cardiomegaly. Mediastinum: Unremarkable. Bones/joints: Unremarkable. IMPRESSION: No acute pulmonary process
== END 2020-07-28 07:00 | disposition home or self-care (01) ==
LOC: EC 05:31
DX: U07.1 COVID-19 (principal); F12.90 Cannabis use, unspecified, uncomplicated; F41.9 Anxiety disorder, unspecified; Z88.0 Allergy status to penicillin; Z79.1 Long term (current) use of non-steroidal anti-inflammatories (NSAID)
CPT/HCPCS: 71046; 87081; 87430; 87635; 99284

== ENCOUNTER 2020-07-28 21:29 | Emergency (ER) | payer OTHER ==
[2020-07-28 23:53] VITALS: BP 132/91; PULSE 98; RESP 17; TEMP 98.9
--- NOTE | 2020-07-28 23:55 | ED ---
Recheck HPI - General Chief Complaint: Recheck/Abnormal Lab/Rx Stated Complaint: COVID +, post c section, chest pain Time Seen by Provider: 07/28/20 23:44 Source: patient Mode of arrival: wheelchair Limitations: no limitations - History of Present Illness Initial Comments: This patient is a 25-year-old woman with history of recent , who states that she had taken her blood pressure at home using someone's home blood pressure monitor and the blood pressure was 170/100. She phoned her physician and was instructed go to emergency department. Patient states that she otherwise is feeling okay. She does have a little bit of abdominal pain that she states has been present since her but has not really concerned her. She indicates the upper margin of the incision. She denies any pain to the upper abdomen, epigastric area or right upper quadrant. She states that her preference is to go home now. Patient denies headache. There is no dyspnea or chest pain. MD Complaint: other -: minutes(s) Initial Visit For: other (Elevated blood pressure) Symptoms Since Prior Visit: no new symptoms Associated Symptoms: none - Related Data Home Medications Medication Instructions Recorded Confirmed diphenhydrAMINE HCL [Benadryl] 25 mg PO Q6H PRN 09/19/17 07/25/20 Acetaminophen Tab [Tylenol Tab] 1,000 mg PO Q6HR PRN 06/10/20 07/25/20 Pnv No.95/Ferrous Fum/Folic AC 1 each PO 07/25/20 [ Multivitamin Tablet] Previous Rx's Medication Instructions Recorded HYDROcodone/APAP 5-325MG [[place] 1 tab PO Q4HR PRN #30 tab 07/27/20 5-325] Ibuprofen [Motrin] 600 mg PO Q6HR PRN #30 tab 07/27/20 Allergies Allergy/AdvReac Type Severity Reaction Status Date / Time amoxicillin AdvReac Nausea & Verified 07/28/20 22:00 Vomiting Review of Systems ROS Statement: Those systems with pertinent positive or pertinent negative responses have been documented in the HPI. ROS Other: All systems not noted in ROS Statement are negative. Constitutional: Denies: fever, chills Eyes: Denies: vision change ENT: Denies: ear pain, congestion Respiratory: Denies: cough, dyspnea Cardiovascular: Denies: chest pain, palpitations, edema Gastrointestinal: Reports: abdominal pain (Post section). Denies: nausea, vomiting, diarrhea, constipation Genitourinary: Denies: dysuria, hematuria Musculoskeletal: Denies: back pain Skin: Denies: rash Neurological: Denies: headache, weakness, numbness, paresthesias, confusion Past Medical History Past Medical History: No Reported History History of Any Multi-Drug Resistant Organisms: None Reported Past Surgical History: Section Additional Past Surgical History / Comment(s): extra toe removed at 10 month, reconstructive at 18 months Past Anesthesia/Blood Transfusion Reactions: No Reported Reaction Past Psychological History: Anxiety Smoking Status: Former smoker Past Alcohol Use History: None Reported Past Drug Use History: Marijuana - Past Family History Mother Family Medical History: Congestive Heart Failure (CHF), COPD, Hypertension General Exam Limitations: no limitations General appearance: alert, in no apparent distress Head exam: Present: atraumatic, normocephalic Eye exam: Present: normal appearance, PERRL, EOMI. Absent: scleral icterus, conjunctival injection ENT exam: Present: normal oropharynx Neck exam: Present: normal inspection Respiratory exam: Present: normal lung sounds bilaterally. Absent: respiratory distress, wheezes, rales, rhonchi, stridor Cardiovascular Exam: Present: regular rate, normal rhythm, normal heart sounds. Absent: systolic murmur, diastolic murmur, rubs, gallop GI/Abdominal exam: Present: soft, other (There is healing low abdominal incision which has normal postoperative appearance. No erythema, warmth or drainage.). Absent: distended, tenderness, guarding, rebound, rigid Extremities exam: Present: normal inspection, normal capillary refill. Absent: pedal edema, calf tenderness Back exam: Present: normal inspection. Absent: CVA tenderness (R), CVA tenderness (L) Neurological exam: Present: alert Skin exam: Present: warm, dry, intact, normal color. Absent: rash Course Vital Signs 07/28/20 07/28/20 21:57 23:51 Temperature 98.6 F 98.9 F Pulse Rate 119 H 98 Respiratory 18 17 Rate Blood Pressure 122/79 132/91 O2 Sat by Pulse 99 98 Oximetry Medical Decision Making - Medical Decision Making This patient is 25-year-old woman who presented to have evaluation after a home blood pressure check was elevated. We have checked the blood pressure twice here, the first entirely normal, the second at the borderline being 132/91. The patient however denies any symptoms related to preeclampsia. The patient is wanting to go home. I reviewed concerning signs and symptoms with her and she will return immediately should any these develop or if a recheck of her blood pressure at home was elevated. Disposition Clinical Impression: Encounter for wound re-check Disposition: HOME SELF-CARE Condition: Good Instructions (If sedation given, give patient instructions): (DC) Additional Instructions: If you experience any of the symptoms that we discussed, return immediately. Call your office administrator to let them know that you are here and to arrange close follow-up. Is patient prescribed a controlled substance at d/c from ED?: No Referrals: Joya Harkins MD [Primary Care Provider] - 1-2 days
== END 2020-07-29 00:43 | disposition home or self-care (01) ==
LOC: EC 21:29
DX: Z48.01 Encounter for change or removal of surgical wound dressing (principal); Z88.0 Allergy status to penicillin; Z87.891 Personal history of nicotine dependence
CPT/HCPCS: 99284

== ENCOUNTER 2020-10-06 20:54 | Emergency (ER) | payer OTHER ==
[2020-10-06 21:00] VITALS: RESP 16; TEMP 97.3
[2020-10-06] MEDS ORDERED: MORPHINE SULFATE 4 MG/ML SYRINGE IVP STA (21:24)
[2020-10-06] MEDS ORDERED: diphenhydrAMINE 50 MG/ML 1 ML VIAL IVP STA (21:24)
[2020-10-06] MEDS ORDERED: SODIUM CHLORIDE 0.9% 1,000 ML IV STA (21:24)
[2020-10-06] MEDS: ONDANSETRON 4 MG/2 ML VIAL IVP STA ×2 (21:32→21:33)
--- NOTE | 2020-10-06 22:25 | ED ---
Headache HPI - General Chief Complaint: Headache Stated Complaint: Headache Time Seen by Provider: 10/06/20 21:00 Source: RN notes reviewed Mode of arrival: EMS Limitations: no limitations - History of Present Illness Initial Comments: Patient is a 25-year-old female presents to emergency department complaining of migraine type headache. She notes that light and sound makes her headaches worse. She notes that today's migraine was worsen or to put on so she decided come emergency room to get evaluated. She notes that she did have some very slight blurry vision that resolved prior to arrival. She did appear to be in mild discomfort while laying in bed during exam and interview. She denied any nausea vomiting diarrhea constipation fever fatigue chills chest pain shortness of breath. - Related Data Home Medications Medication Instructions Recorded Confirmed diphenhydrAMINE HCL [Benadryl] 25 mg PO Q6H PRN 09/19/17 07/25/20 Acetaminophen Tab [Tylenol Tab] 1,000 mg PO Q6HR PRN 06/10/20 07/25/20 Pnv No.95/Ferrous Fum/Folic AC 1 each PO 07/25/20 [ Multivitamin Tablet] Previous Rx's Medication Instructions Recorded HYDROcodone/APAP 5-325MG [[place] 1 tab PO Q4HR PRN #30 tab 07/27/20 5-325] Ibuprofen [Motrin] 600 mg PO Q6HR PRN #30 tab 07/27/20 Allergies Allergy/AdvReac Type Severity Reaction Status Date / Time amoxicillin AdvReac Nausea & Verified 07/28/20 22:00 Vomiting Review of Systems ROS Statement: Those systems with pertinent positive or pertinent negative responses have been documented in the HPI. ROS Other: All systems not noted in ROS Statement are negative. Past Medical History Past Medical History: No Reported History History of Any Multi-Drug Resistant Organisms: None Reported Past Surgical History: Section Additional Past Surgical History / Comment(s): extra toe removed at 10 month, reconstructive at 18 months Past Anesthesia/Blood Transfusion Reactions: No Reported Reaction Past Psychological History: Anxiety Smoking Status: Former smoker Past Alcohol Use History: None Reported Past Drug Use History: Marijuana - Past Family History Mother Family Medical History: Congestive Heart Failure (CHF), COPD, Hypertension General Exam Limitations: no limitations General appearance: alert, in no apparent distress, obese Head exam: Present: atraumatic, normocephalic, normal inspection Eye exam: Present: normal appearance, PERRL, EOMI. Absent: scleral icterus, conjunctival injection, periorbital swelling Neck exam: Present: normal inspection Respiratory exam: Present: normal lung sounds bilaterally. Absent: respiratory distress, wheezes, rales, rhonchi, stridor Cardiovascular Exam: Present: regular rate, normal rhythm, normal heart sounds. Absent: systolic murmur, diastolic murmur, rubs, gallop, clicks GI/Abdominal exam: Present: soft, normal bowel sounds. Absent: distended, tenderness, guarding, rebound, rigid Extremities exam: Present: normal inspection, full ROM, normal capillary refill. Absent: tenderness, pedal edema, joint swelling, calf tenderness Back exam: Present: normal inspection Neurological exam: Present: alert, oriented X3 Psychiatric exam: Present: normal affect, normal mood Skin exam: Present: warm, dry, intact, normal color. Absent: rash Course Vital Signs 10/06/20 20:56 Temperature 97.3 F L Pulse Rate 65 Respiratory 16 Rate Blood Pressure 139/80 O2 Sat by Pulse 100 Oximetry Medical Decision Making - Medical Decision Making 25-year-old female complaining of migraine type headache, states that she gets these regularly. 1 L normal saline, 4 mg of morphine, 4 mg of Zofran, 50 mg of Benadryl ordered. Upon reevaluation patient states that she feels much better like to go home. Case discussed with Dr. Benítez, patient can discharge home with follow-up to primary care. Disposition Clinical Impression: Migraine headache Disposition: HOME SELF-CARE Condition: Stable Instructions (If sedation given, give patient instructions): Acute Headache (ED) Additional Instructions: Please return to the Emergency Department if symptoms worsen or any other concerns. Follow-up with primary care as needed. Continue take at home medications as prescribed. Increase oral fluids. Is patient prescribed a controlled substance at d/c from ED?: No Referrals: Joya Harkins MD [Primary Care Provider] - 1-2 days Time of Disposition: 22:25
[2020-10-06 22:42] VITALS: BP 121/86; PULSE 72
== END 2020-10-06 22:40 | disposition home or self-care (01) ==
LOC: EC 20:54
DX: G43.909 Migraine, unspecified, not intractable, without status migrainosus (principal); F41.9 Anxiety disorder, unspecified; F12.90 Cannabis use, unspecified, uncomplicated; Z87.891 Personal history of nicotine dependence
CPT/HCPCS: 99283; 96374; 96375; 96361; J2270; J1200

== ENCOUNTER 2021-05-03 09:20 | Emergency (ER) | payer OTHER ==
[2021-05-03 10:52] VITALS: BP 117/68; PULSE 89; RESP 18; TEMP 97.9
[2021-05-03 11:17] LABS: Basophils % (A) 1 %; Eosinophils # (A) 0.4 k/uL (0-0.7); Eosinophils % (A) 4 %; HGB 12.5 gm/dL (11.4-16.0); Lymphocytes # (A) 1.8 k/uL (1.0-4.8); Lymphocytes % (A) 21 %; MCH 26.7 pg (25.0-35.0); MCHC 32.1 g/dL (31.0-37.0); MCV 83.3 fL (80.0-100.0); Mean Platelet Volume 8.2; Monocytes # (A) 0.4 k/uL (0-1.0); Monocytes % (A) 5 %; Neutrophils # (A) 5.7 k/uL (1.3-7.7); Neutrophils % (A) 68 %; Platelet Count 248 k/uL (150-450); RBC 4.68 m/uL (3.80-5.40); RDW 15.8 % (11.5-15.5); WBC 8.4 k/uL (3.8-10.6)
[2021-05-03 11:35] LABS: Appearance,Urine Cloudy (Clear); Bilirubin,Urine Negative (Negative); Blood,Urine Large (Negative); Color,Urine Light Red; Glucose,Urine (UA) Negative (Negative); Ketones,Urine Negative (Negative); Leukocyte Esterase,Urine Moderate (Negative); Mucus,Urine Few /hpf; Nitrite,Urine Negative (Negative); Protein,Urine 1+ (Negative); RBC,Urine >182 /hpf (0-5); Specific Gravity,Urine 1.025 (1.001-1.035); Squamous Epithelial Cell,Urine 1 /hpf (0-4); Urobilinogen,Urine <2.0 mg/dL (<2.0); WBC,Urine 22 /hpf (0-5)
--- NOTE | 2021-05-03 11:46 | ED ---
Female Urogenital HPI - General Chief complaint: Vaginal Bleeding Stated complaint: early , vag bleeding Time Seen by Provider: 05/03/21 10:37 Source: patient, RN notes reviewed Mode of arrival: ambulatory Limitations: no limitations - History of Present Illness Initial comments: 25-year-old female presents emergency from chief complaint of vaginal bleeding early . Patient states she started spotting last night but states bleeding is worse today denies any pain associated. Denies Cramping back pain no clots noted. Patient states that she is A0 unsure of her lungs she has been though she states she just found out last week she is . Patient states that she's not had a current MUSIC ARRANGER. Patient states she has never received RhoGAM with any of her pregnancies. Denies fevers or chills nausea vomiting no other complaints. - Related Data Home Medications Medication Instructions Recorded Confirmed diphenhydrAMINE HCL [Benadryl] 25 mg PO Q6H PRN 09/19/17 07/25/20 Acetaminophen Tab [Tylenol Tab] 1,000 mg PO Q6HR PRN 06/10/20 07/25/20 Pnv No.95/Ferrous Fum/Folic AC 1 each PO 07/25/20 [ Multivitamin Tablet] Previous Rx's Medication Instructions Recorded HYDROcodone/APAP 5-325MG [[place] 1 tab PO Q4HR PRN #30 tab 07/27/20 5-325] Ibuprofen [Motrin] 600 mg PO Q6HR PRN #30 tab 07/27/20 Allergies Allergy/AdvReac Type Severity Reaction Status Date / Time amoxicillin AdvReac Nausea & Verified 07/28/20 22:00 Vomiting Review of Systems ROS Statement: Those systems with pertinent positive or pertinent negative responses have been documented in the HPI. ROS Other: All systems not noted in ROS Statement are negative. Past Medical History Past Medical History: No Reported History History of Any Multi-Drug Resistant Organisms: None Reported Past Surgical History: Section Additional Past Surgical History / Comment(s): extra toe removed at 10 month, reconstructive at 18 months Past Anesthesia/Blood Transfusion Reactions: No Reported Reaction Past Psychological History: Anxiety Smoking Status: Former smoker Past Alcohol Use History: None Reported Past Drug Use History: Marijuana - Past Family History Mother Family Medical History: Congestive Heart Failure (CHF), COPD, Hypertension General Exam Limitations: no limitations General appearance: alert, in no apparent distress Head exam: Present: atraumatic, normocephalic, normal inspection Eye exam: Present: normal appearance, PERRL, EOMI. Absent: scleral icterus, conjunctival injection, periorbital swelling ENT exam: Present: normal exam, normal oropharynx, mucous membranes moist Neck exam: Present: normal inspection, full ROM. Absent: tenderness, meningismus, lymphadenopathy Respiratory exam: Present: normal lung sounds bilaterally. Absent: respiratory distress, wheezes, rales, rhonchi, stridor Cardiovascular Exam: Present: regular rate, normal rhythm, normal heart sounds. Absent: systolic murmur, diastolic murmur, rubs, gallop, clicks GI/Abdominal exam: Present: soft, normal bowel sounds. Absent: distended, tenderness, guarding, rebound, rigid Course Vital Signs 05/03/21 10:50 Temperature 97.9 F Pulse Rate 89 Respiratory 18 Rate Blood Pressure 117/68 O2 Sat by Pulse 98 Oximetry Medical Decision Making - Medical Decision Making Patient's hCG is 15.9. Patient states she found out she was from one week ago. This is very concerning the patient's having miscarriage. She will have a repeat hCG in 2 days return parameters were discussed. - Lab Data Result diagrams: 05/03/21 10:59 Lab Results 05/03/21 05/03/21 05/03/21 Range/Units 10:59 10:59 10:59 WBC 8.4 (3.8-10.6) k/uL RBC 4.68 (3.80-5.40) m/uL Hgb 12.5 (11.4-16.0) gm/dL Hct 39.0 (34.0-46.0) % MCV 83.3 (80.0-100.0) fL MCH 26.7 (25.0-35.0) pg MCHC 32.1 (31.0-37.0) g/dL RDW 15.8 H (11.5-15.5) % Plt Count 248 (150-450) k/uL MPV 8.2 Neutrophils % 68 % Lymphocytes % 21 % Monocytes % 5 % Eosinophils % 4 % Basophils % 1 % Neutrophils # 5.7 (1.3-7.7) k/uL Lymphocytes # 1.8 (1.0-4.8) k/uL Monocytes # 0.4 (0-1.0) k/uL Eosinophils # 0.4 (0-0.7) k/uL Basophils # 0.0 (0-0.2) k/uL HCG, Quant 15.9 mIU/mL Urine Color Light Red Urine Appearance Cloudy H (Clear) Urine pH 6.0 (5.0-8.0) Ur Specific [place] 1.025 (1.001-1.035) Urine Protein 1+ H (Negative) Urine Glucose (UA) Negative (Negative) Urine Ketones Negative (Negative) Urine Blood Large H (Negative) Urine Nitrite Negative (Negative) Urine Bilirubin Negative (Negative) Urine Urobilinogen <2.0 (<2.0) mg/dL Ur Leukocyte Esterase Moderate H (Negative) Urine RBC >182 H (0-5) /hpf Urine WBC 22 H (0-5) /hpf Ur Squamous Epith Cells 1 (0-4) /hpf Urine Mucus Few H (None) /hpf Disposition Clinical Impression: Threatened miscarriage in early Disposition: HOME SELF-CARE Condition: Stable Instructions (If sedation given, give patient instructions): Threatened Miscarriage (ED) Additional Instructions: Please return to the Emergency Department if symptoms worsen or any other concerns. Is patient prescribed a controlled substance at d/c from ED?: No Referrals: None,Stated [Primary Care Provider] - 1-2 days Time of Disposition: 12:06
--- NOTE | 2021-05-03 11:59 | US ---
EXAMINATION TYPE: Transabdominal DATE OF EXAM: 05/03/2021 11:39 AM COMPARISON: NONE CLINICAL HISTORY: bleeding. Vaginal bleeding in x 2 days; ; patient stated had couple o f positive home tests EXAM PERFORMED: Transvaginal (TV) and Transabdominal (TA) EXAM MEASUREMENTS: GESTATIONAL AGE / DATING Physician Established: Not yet established Dates by LMP: LMP unknown Dates by First Scan: No previous this is first scan Dates by Current Scan for: No IUP is seen MATERNAL ANATOMY Uterus: 8.6 x 6.2 x 4.7cm ; multiple Nabothian Cysts seen in cervix with largest cluster = 1.3 x 1.3 x 1.2cm. Endometrium size: 2.0cm. Right Ovary: 3.0 x 2.1 x 1.8cm; simple follicular cyst seen 1.7 x 1.1 x 1.4cm. Left Ovary: 3.6 x 3.2 x 1.9cm Post CDS / Adnexa: small amount of free fluid lateral to right ovary = 2.1 x 1.4 x 1.4cm. Presence of corpus luteal cyst: not identified Presence of subchorionic bleed: no GESTATION / SURVEY: No IUP is seen. Date of LMP: approximately 03/20/2021 Beta HcG (if available): NA IMPRESSION: Endometrium is thickened measuring 2 cm however there is no diagnostic evidence of intrauterine pregn yudelka small amount of fluid is posterior to the right ovary. Differential diagnosis would include a pr egnancy too early to detect, missed or ectopic . Correlate with serial beta hCG and pelvic ultrasound as clinically warranted.
== END 2021-05-03 12:20 | disposition home or self-care (01) ==
LOC: EC 09:20
DX: O20.0 Threatened abortion (principal); O99.321 Drug use complicating pregnancy, first trimester; F12.90 Cannabis use, unspecified, uncomplicated; Z87.891 Personal history of nicotine dependence; Z3A.00 Weeks of gestation of pregnancy not specified
CPT/HCPCS: 36415; 76801; 76817; 81001; 84702; 85025; 87086; 99284

== ENCOUNTER → 2023-07-29 | Outpatient (CLI) | payer OTHER ==
[2023-07-29 11:20] LABS: Basophils # (A) 0.06 X 10*3/uL (0.00-0.10); Basophils % (A) 0.8 %; Eosinophils # (A) 0.46 X 10*3/uL (0.04-0.35); Eosinophils % (A) 6.3 %; HCT 40.4 % (37.2-46.3); HGB 12.9 g/dL (12.0-15.0); Lymphocytes # (A) 1.83 X 10*3/uL (0.90-5.00); MCH 26.1 pg (27.0-32.0); MCHC 31.9 g/dL (32.0-37.0); MCV 81.8 FL (80.0-97.0); Monocytes # (A) 0.57 X 10*3/uL (0.20-1.00); Monocytes % (A) 7.8 %; NRBC Per 100 WBC 0 X 10*3/uL (0.00-0.01); Neutrophils # (A) 4.35 X 10*3/uL (1.80-7.70); Neutrophils % (A) 59.6 %; Platelet Count 288 X 10*3/uL (140-440); RBC 4.94 X 10*6/uL (4.10-5.20); RDW 14.9 % (11.5-14.5); WBC 7.31 X 10*3/uL (4.50-10.00)
[2023-07-29 11:44] LABS: ALT 28 U/L (8-44); AST 17 U/L (13-35); Alkaline Phosphatase 72 U/L (41-126); BUN/Creat Ratio 17.29 Ratio (12.00-20.00); Blood Urea Nitrogen 12.1 mg/dL (9.0-27.0); Calcium 9.1 mg/dL (8.7-10.3); Carbon Dioxide 22.5 mmol/L (21.6-31.8); Chloride 108 mmol/L (96-109); Chol/HDL Ratio 3.37 Ratio; Globulin 2.5 g/dL (1.6-3.3); Glucose 101 mg/dL (70-110); LDL Cholesterol,Calculated 93.5 mg/dL (0.0-131.0); Potassium 4.5 mmol/L (3.5-5.5); Sodium 142 mmol/L (135-145); Total Bilirubin 0.3 mg/dL (0.3-1.2); Total Protein 6.5 g/dL (6.2-8.2); VLDL Calculation 14.12 mg/dL (5.00-40.00)
== END | disposition home or self-care (01) ==
LOC: LABWHC1 08:01
PROVIDERS: ATTEND Internal Medicine
DX: Z00.00 Encounter for general adult medical examination without abnormal findings (principal); Z11.59 Encounter for screening for other viral diseases; R05.1 Acute cough
CPT/HCPCS: 36415; 80053; 80061; 84443; 85025; 86803

== ENCOUNTER → 2023-08-03 | Outpatient (CLI) | payer OTHER ==
--- NOTE | 2023-08-03 12:01 | MR ---
EXAMINATION TYPE: MR brain wo/w con DATE OF EXAM: 08/03/2023 9:00 AM CLINICAL INDICATION:Female, 28 years old with history of G43.909 MIGRAINE, UNSP, NOT INTRACTABLE, WIT HOUT S; PHH, Migraines, Dizziness COMPARISON: None TECHNIQUE: Multi planar, multi sequence imaging was performed through the brain including: T1, T2, In version recovery, susceptibility weighted imaging and gradient echo imaging and Diffusion weighted im aging. The patient was then given intravenous contrast and multi planar, T1 fat-saturation images wer e obtained. IV Contrast: 13 cc Gadavist FINDINGS: The cabello-white junctions, ventricular system, basal cisterns appear unremarkable. Diffusion-weighted imaging shows no evidence of restricted diffusion to suggest acute/subacute infarct. Intracranial ar terial flow voids are maintained. Midline structures show no abnormality. The susceptibility weighted images do not reveal any evidence for micro-hemorrhage. After administration of gadolinium, no abnor mal enhancement is seen. The bone marrow signal is within normal limits. Paranasal sinuses and mastoid air cells: Retention cyst within the left maxillary sinus. Moderate eth moid air cell. Nasal sinus disease. Scattered paranasal sinus disease. Visualized orbits: Orbital contents are intact. IMPRESSION: No evidence of intracranial mass, acute/subacute infarct, or abnormal enhancement.
== END | disposition home or self-care (01) ==
LOC: RADMRIMAIN 08:12
PROVIDERS: ATTEND Internal Medicine
DX: G43.909 Migraine, unspecified, not intractable, without status migrainosus (principal); R42 Dizziness and giddiness
CPT/HCPCS: 70553